=== PATIENT | female | born 1995 | race Caucasian/White ===

== ENCOUNTER 2023-02-04 07:39 | Outpatient (CLI) | payer OTHER, SELFPAY | END 2023-02-04 07:40 | disposition home or self-care (01) | LOC: NFLDREF 07:45 | PROVIDERS: Visit Provider Family Medicine | DX: Z13.220 Encounter for screening for lipoid disorders (principal); Z13.1 Encounter for screening for diabetes mellitus | CPT/HCPCS: 80061; 82947 ==

== ENCOUNTER 2023-04-03 16:32 | Emergency (ER) | payer OTHER, SELFPAY ==
[2023-04-03 16:37] VITALS: BP 110/72; PULSE 76; RESP 18; TEMP 36.6; O2SAT 100; BMI 24.2
--- NOTE | 2023-04-03 16:45 | ED_ITS ---
HPI - General Adult General Time Seen by Provider: 16:45 Date Seen: 04/03/23 Chief complaint: Vaginal Bleeding Stated complaint: 6 weeks , abdomen pain Time Seen by Provider: 04/03/23 16:40 Source: patient, family, RN notes reviewed and old records reviewed History of Present Illness HPI narrative: 27-year-old with at 6+ to weeks by LMP 02/18/2023 who presents today with abdominal pain and vaginal bleeding. Patient notes light brown spotting all week, today bright red blood with some clots and also some left lower quadrant abdominal pain radiating to the low back. Denies chest pain or shortness of breath. Says the amount of bleeding is less than period. Has not had 1st OB visit or imaging thus far in Related Data Home Medications Medication Instructions Recorded Confirmed No Known Home Medications 04/03/23 04/03/23 Allergies Allergy/AdvReac Type Severity Reaction Status Date / Time No Known Drug Allergies Allergy Verified 02/04/23 07:31 [facility] Medical History No pertinent past medical history ?Z78.9 - Other specified health status (ICD-10) Surgical History History of wisdom tooth extraction (2016) ?K08.409 - Partial loss of teeth, unspecified cause, unspecified class (ICD- 10) Family History Leukemia Maternal Grandfather, Onset Age: 55 Stroke Paternal Grandmother, Onset Age: 78 Social History Narrative: , 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[employer], no kids, Labrador puppy Mushu Exercise walking 45 minutes 3 to 4 times a week Lifetime nonsmoker Rare alcohol use No drug use Smoking Status: Never smoker How often do you have a drink containing alcohol: never AUDIT-C Alcohol total score: 0 Non-prescribed substance use: denies use Little interest or pleasure in doing things: not at all Feeling down, depressed, or hopeless: not at all Exam Narrative: Exam Narrative: General: Well-developed and well-nourished, no acute distress Head: Atraumatic and normocephalic Eyes: Pupils are equal reactive, extraocular motions intact, conjunctiva clear ENT: External nose and ears are normal, posterior pharynx without erythema or exudate Neck: No midline cervical tenderness, full spontaneous range of motion the neck, trachea midline, no adenopathy Heart: Regular rate and rhythm no murmurs or thrills Lungs: Clear to auscultation bilaterally without wheezes or crackles Abdomen: Soft, left lower quadrant tenderness just lateral to midline, nondistended with active bowel sounds Musculoskeletal: No tenderness, deformity, or edema Neurologic: Awake, alert, and oriented x3, no gross focal neurologic deficits, cranial nerves intact as tested Psych: Mood and affect are appropriate Skin: No rashes Const: Vital Signs, click to edit/add: Vital Signs - 24 hr 04/03/23 16:37 Temperature 97.8 F Pulse Rate [Right Femoral] 76 Respiratory Rate 18 Blood Pressure [Ri ght Upper Arm] 110/72 Pulse Oximetry 100 Oxygen Delivery Me thod Room Air Course Course ED Course: Patient seen examined, reviewed prior primary care visit from 02/04/2023 which was a routine physical exam with no specific concerns and no medications prescribed, patient denies smoking. Patient presents today with left lower quadrant pain and vaginal bleeding. Vital is stable on exam, says bleeding is less than.. Labs ordered along pelvic ultrasound, concern for miscarriage or ectopic . Reevaluation(s) Time of Reevaluation #1: 17:29 Reevaluation #1: Discussed ultrasound with tech, intrauterine 7 weeks, also 2 large cysts on the left ovary good flow. Time of Reevaluation #2: 19:02 Reevaluation #2: Reviewed ultrasound report which demonstrates gestational sac with 9.5 mm and round pole but no embryonic cardiac activity, two left ovarian cysts. Concern for early failure. Discussed findings with patient and spouse. [facility] 2-3 days for repeat beta hCG and in 1 week for repeat ultrasound. Vital Signs Vital signs: Initial Vital Signs Temperature 97.8 F 04/03/23 16:37 Temperature Source Temporal Artery Scan 04/03/23 16:37 Pulse Rate 76 04/03/23 16:37 Respiratory Rate 18 04/03/23 16:37 Blood Pressure 110/72 04/03/23 16:37 Blood Pressure Mean 84 04/03/23 16:37 Blood Pressure Position Sitting 04/03/23 16:37 Pulse Oximetry 100 04/03/23 16:37 Oxygen Delivery Method Room Air 04/03/23 16:37 Vital Signs Temperature 97.8 F 04/03/23 16:37 Pulse Rate 76 04/03/23 16:37 Respiratory Rate 18 04/03/23 16:37 Blood Pressure 110/72 04/03/23 16:37 Pulse Oximetry 100 04/03/23 16:37 Oxygen Delivery Method Room Air 04/03/23 16:37 Temperature 97.8 F 04/03/23 16:37 Pulse Rate 76 04/03/23 16:37 Respiratory Rate 18 04/03/23 16:37 Blood Pressure 110/72 04/03/23 16:37 Pulse Oximetry 100 04/03/23 16:37 Oxygen Delivery Method Room Air 04/03/23 16:37 Medical Decision Making Lab Data Labs: Lab Results 04/03/23 04/03/23 Range/Units 17:05 17:39 WBC 7.61 (4.50-11.00) K/uL RBC 4.42 (4.00-5.20) m/uL Hgb 14.1 (12.0-16.0) gm/dL Hct 41.5 (33.0-51.0) % MCV 94 (80-100) fL MCH 32 (26-34) pg MCHC 34 (32-36) gm/dL RDW Coeff of Nabil 12.2 (11.5-15.5) % Plt Count 302 (140-440) K/uL Neut % (Auto) 61.1 (42.0-72.0) % Lymph % (Auto) 31.5 (20-44) % [place] % (Auto) 4.6 (0.0-11.0) % Eos % (Auto) 2.0 (0.0-7.0) % Baso % (Auto) 0.7 (0.0-3.0) % Neut # (Auto) 4.65 (1.7-7.0) K/uL Lymph # (Auto) 2.40 (0.90-2.90) K/uL [place] # (Auto) 0.40 (0.00-0.90) K/UL Eos # (Auto) 0.15 (0.00-0.50) K/uL Baso # (Auto) 0.05 (0.00-0.30) K/uL Abs Immat Gran (auto) 0.01 (0.00-0.30) K/uL Imm/Tot Granulo (auto) 0.1 % HCG, Quant 5842.00 mIU/mL Lab Acknowledgement Test Added Blood Type A Positive Antibody Screen NEGATIVE Discharge Plan Discharge Clinical Impression: Ovarian cyst affecting in first trimester, antepartum, Threatened miscarriage in early Patient Disposition: Home, Self-Care Condition: Stable Instructions: Threatened Miscarriage (ED), Ovarian Cyst (ED) Additional Instructions: Tylenol as needed for pain [facility] in 2-3 days for repeat blood tests and next week for repeat ultrasound Activity Level: No Restrictions Discharge Diet: Regular Prescriptions: No Action No Known Home Medications Follow Up/Referrals: Shelly Lugo MD [Primary Care Provider] - Stand Alone Forms: [employer] Info Instructions
--- NOTE | 2023-04-03 16:54 | CRLHL7_ITS ---
For Patients: As a result of the Cures Act, medical imaging exams and procedure reports are released immediately into your electronic medical record. You may view this report before your referring provider. If you have questions, please contact your health care provider. INDICATION: BLEEDING, LLQ PAIN OBSTETRICAL ULTRASOUND Technique: Transvaginal scanning of the pelvis was performed. Findings: The uterus contains a gestational sac which shows a mean sac diameter of 1.3 centimeters. The gestational sac contains an embryonic pole which has a crown-rump length of 9.5 millimeters. No embryonic cardiac activity can be seen. The left ovary contains 2 simple cysts which measure 3.6 x 1.6 x 2.8 centimeters and 3.2 x 1.1 x 2.3 centimeters. The right ovary is unremarkable. Doppler blood flow is present within both of the ovaries. No significant free pelvic fluid is identified. IMPRESSION: 1. Early intrauterine with embryonic crown-rump length of 9.5 millimeters but no detectable cardiac activity, consistent with failure. 2. Left ovarian simple cysts measuring 3.6 x 1.6 x 2.8 centimeters and 3.2 x 1.1 x 2.3 centimeters. MINISTERIO DA SILVA MD [employer] Dictated by Gaudencio Da Silva MD @ 04/03/2023 6:51:25 PM Dictated by: Gaudencio Da Silva MD @ 04/03/2023 18:53:15 (Electronically Signed)
[2023-04-03 17:17] LABS: Basophils Absolute Auto 0.05 K/uL (0.00-0.30); Basophils Percent Auto 0.7 % (0.0-3.0); Eosinophils Absolute Auto 0.15 K/uL (0.00-0.50); Hematocrit 41.5 % (33.0-51.0); Hemoglobin* 14.1 gm/dL (12.0-16.0); Immature Granulocytes Abs Auto 0.01 K/uL (0.00-0.30); Immature Granulocytes Pct Auto 0.1 %; Lymphocytes Percent Auto 31.5 % (20-44); Mean Corpuscular HGB Conc 34 gm/dL (32-36); Mean Corpuscular Hemoglobin 32 pg (26-34); Mean Corpuscular Volume 94 fL (80-100); Monocytes Percent Auto 4.6 % (0.0-11.0); Neutrophils Absolute Auto 4.65 K/uL (1.7-7.0); Neutrophils Percent Auto 61.1 % (42.0-72.0); Platelet Count* 302 K/uL (140-440); RDW Coefficient of Variation % 12.2 % (11.5-15.5); Red Blood Count 4.42 m/uL (4.00-5.20); White Blood Count* 7.61 K/uL (4.50-11.00)
--- OUTSIDE RECORDS SUMMARY | 2023-04-03 17:31 | XMS_ITS | Clinical Summary ---
Author Name Unknown Organization [facility] Address [place], [place] [address] Care Team Providers Care Printing Table Worker Name Role Phone Molly Celeste Primary Care Provider +1- [phone] Allergies No known active allergies Medications Medication Sig Dispensed Refills Start Date End Date Status norgestimate-ethinyl estradioL (Tri-Sprintec) 0.18/0.215/0.25 mg-35 mcg (28) tabletIndications:Oral contraceptive use Take 1 Tablet by mouth once daily. 84 Tablet 0 10/27/2022 Active Active Problems Problem Noted Date Diagnosed Date Encounter for surveillance of contraceptive pill s 07/17/2015 Encounters Date Type Department Care Team Description 02/04/2023 Lab Requisition [facility] [phone] Shelly Lugo MD from Last 3 Months Immunizations Name Administration Dates Next Due DTP 1995,1995,1995 DTaP 05/21/1999,08/30/1996 HIB PRP-OMP (PedvaxHIB) 08/30/1996,1995,,1995 Hepatitis A (Adult) 01/22/2022 Hepatitis B (Adult) 12/06/2015,07/03/2015 Hepatitis B (Peds) 03/04/1996,1995, 996 Inactivated Polio Vaccine 05/21/1999 Influenza Virus, Unspecified 12/11/2021 Influenza, IIV3 (Age >=3 years) 12/04/2017 Influenza, IIV4 12/17/2020,12/22/2019,11/28/2016 ,12/06/2015 MMR 05/21/1999,08/30/1996 Meningococcal Vaccine (Menveo) 09/15/2012 Oral Polio Vaccine 1995,1995, 996 Tdap 10/06/2016,08/06/2006 Tuberculin (PPD) 10/06/2016,05/12/1996 Varicella Vaccine 09/26/2009,05/21/1999 Family History Medical History Relation Name Comments Hypertension Father Cancer Maternal Grandfather AML Heart Disease Maternal Grandmother Afib Good Health Mother Hypertension Paternal Grandfather Stroke Paternal Grandmother Relation Name Status Comments Father Maternal Grandfather Maternal Grandmother Mother Paternal Grandfather Paternal Grandmother Social History Tobacco Use Types Packs/Day Years Used Date Smoking Tobacco: Never Smokeless Tobacco: Never Alcohol Use Standard Drinks/Week Comments Yes 0 (1 standard drink = 0.6 oz pure alcohol) once every few few months/ rare. PHQ-2 Answer Date Recorded PHQ-2 TOTAL SCORE 0 01/22/2022 Social Connections Answer Date Recorded Frequency of Communication with Friends and Fami ly Not on file 03/02/2021 Financial Resource Strain Answer Date R ecorded Difficulty of Paying Living Expenses Not on file 03/02/2021 Difficulty of Paying Living Expenses Not on file 03/02/2021 Sex and Gender Information Value Date Recorded Sex Assigned at Not on file Gender Identity Not on file Sexual Orientation Not on file Obstetrics History Last Filed Vital Signs Vital Sign Reading Time Taken Comments Blood Pressure 102/78 01/22/2022 9:34 AM KEY ACCOUNT COORDINATOR Pulse 72 01/22/2022 9:34 AM KEY ACCOUNT COORDINATOR Temperature 37.1 ??C (98.7 ??F) 08/30/2013 9:17 AM CD T Respiratory Rate 16 12/10/2018 8:35 AM CDT Oxygen Saturation - - Inhaled Oxygen Concentration - - Weight 68 kg (150 lb) 01/22/2022 9:34 AM KEY ACCOUNT COORDINATOR Height 170.2 cm (5' 7) 01/22/2022 9:34 AM KEY ACCOUNT COORDINATOR Body Mass Index 23.49 01/22/2022 9:34 AM KEY ACCOUNT COORDINATOR Plan of Treatment Health Maintenance Due Date Last Done Comments HIV for age 15-65 05/19/2010 Hepatitis C screening for age 18-79 05/19/2013 COVID-19 vaccine series ( season) 2022 02/13/2021, 07/06/2020, 06/15/2020 Influenza for age 9-49 10/31/2022 2, 12/17/2020, 12/22/2019, Additional history exists BMI (ht and wt on same day) for age 18+ 01/22/2023 01/22/2022, 12/17/2020, 12/15/2019, Additional history exists Depression screening for age 12+ 01/22/2023 01/22/2022, 12/17/2020, 12/15/2019, Additional history exists Pap test for age 21-65 02/04/2026 3, 12/15/2019, 11/28/2016 Tetanus booster 10/06/2026 10/06/2016, 08/06/2006 Tdap Completed 10/06/2016, 08/06/2006 Pneumococcal series for age 6-64 Aged Out No longer eligible based on patient's age to complete this topic Procedures Procedure Name Priority Date/Time Associated Diagnosis Comments LAB TRACKING EVENT Routine 02/04/2023 7: 55 AM KEY ACCOUNT COORDINATOR WELDER OXYHYDROGEN THIN PREP PAP SCREEN IMAGED Routine 02/04/2023 7:55 AM KEY ACCOUNT COORDINATOR from Last 3 Months Results * LAB TRACKING EVENT (02/04/2023 7:55 AM KEY ACCOUNT COORDINATOR) Other (Other) Client Collect / Unknown 02/04/2023 7:55 AM KEY ACCOUNT COORDINATOR 02/04/2023 9:08 PM KEY ACCOUNT COORDINATOR Shelly Lugo MD [facility] [address] [place] [address], * WELDER OXYHYDROGEN THIN PREP PAP SCREEN IMAGED (02/04/2023 7:55 AM KEY ACCOUNT COORDINATOR) Case Report Gynecologic Cytology Report ? Case: [id number] ? Authorizing Provider: ??Shelly Lugo MD ??Collected: ? 02/04/2023 0755 ? Ordering Location: ? [facility] ?Received: ?02/05/2023 1241 ? First Screen: ?Evelyn Estrella ? Specimen: ?WELDER OXYHYDROGEN ThinPrep Vial Screening, Cervical/Vaginal ? 02/12/2023 4:46 PM KEY ACCOUNT COORDINATOR [facility]- ENTRAL LABORATORY INTERPRETATION/ RESULT NEGATIVE FOR INTRAEPITHELIAL LESION OR MALIGNANCY (NIL) (none) 02/12/2023 4:46 PM KEY ACCOUNT COORDINATOR [facility] ENTRAL LABORATORY IMEN ADEQUACY Satisfactory for evaluation Endocervical component present 02/12/2023 4:46 PM KEY ACCOUNT COORDINATOR [facility]-C ENTRAL LABORATORY HPV REQUEST HPV not requested 2022 4:46 PM KEY ACCOUNT COORDINATOR [facility] ENTRAL LABORATORY Date of LMP 02/12/2023 4:46 PM KEY ACCOUNT COORDINATOR [facility] ENTRAL LABORATORY Comment:unknown Last Pap Date 02/12/2023 4:46 PM KEY ACCOUNT COORDINATOR [facility] ENTRAL LABORATORY Comment:unknown Last Pap Result NIL 4:46 PM KEY ACCOUNT COORDINATOR [facility]- ENTRAL LABORATORY Abnormal Pap or [place] Bx in last 5 years No 02/12/2023 4:46 PM KEY ACCOUNT COORDINATOR [facility] [place] Bx Done Today No 02/12/2023 4:46 PM KEY ACCOUNT COORDINATOR [facility] Additional Information 02/12/2023 4:46 PM KEY ACCOUNT COORDINATOR [facility] ENTRWA LABORATORY Comment: Interpreted at [facility] - [address], [place] [address] Automated Review Successful 02/12/2023 4:46 PM KEY ACCOUNT COORDINATOR [facility] Comment:Specimen processed s uccessfully by automated paintless dent repair technician device, ThinPrep Imaging System, [employer] Note The pap test is a screening technique, not a diagnostic procedure. It is used primarily to screen for squamous cancers and precursor lesions. Published studies have shown that it is subject to both false negative and false positive results. The pap test should not be used as the sole means to diagnose or exclude pre-malignant and malignant lesions. 02/12/2023 4:46 PM KEY ACCOUNT COORDINATOR [facility] Other (Cervical/Vagina l) 02/04/2023 7:55 AM KEY ACCOUNT COORDINATOR 02/05/2023 12:41 PM KEY ACCOUNT COORDINATOR Shelly Lugo MD PATHOLOGY/CYTOLO GY [facility] [address] [place] [address], [place] from Last 3 Months Care Teams Printing Table Worker Relationship Specialty Start Date End Date Molly Celeste PA PCP - General Physician New Car Inspector 05/04/21
[2023-04-03 17:33] LABS: Slide Review Reflex No
== END 2023-04-03 19:15 | disposition home or self-care (01) ==
PROVIDERS: Emergency Provider Family Medicine; PCP Family Medicine
DX: O34.81 Maternal care for other abnormalities of pelvic organs, first trimester (principal); O20.0 Threatened abortion; N83.202 Unspecified ovarian cyst, left side; Z3A.01 Less than 8 weeks gestation of pregnancy
CPT/HCPCS: 36415; 76817; 84702; 85025; 86850; 86900; 86901; 93976; 99284

== ENCOUNTER 2023-04-06 16:20 | Outpatient (CLI) | payer OTHER, SELFPAY ==
--- OUTSIDE RECORDS SUMMARY | 2023-04-08 11:35 | XMS_ITS | Clinical Summary ---
Author Name Unknown Organization [facility] Address [place], [place] [address] Care Team Providers Care Box Toe Cementer Name Role Phone Molly Celeste Primary Care Provider +1- [phone] Allergies No known active allergies Medications Medication Sig Dispensed Refills Start Date End Date Status norgestimate-ethinyl estradioL (Tri-Sprintec) 0.18/0.215/0.25 mg-35 mcg (28) tabletIndications:Oral contraceptive use Take 1 Tablet by mouth once daily. 84 Tablet 0 10/27/2022 Active Active Problems Problem Noted Date Diagnosed Date Encounter for surveillance of contraceptive pill s 07/17/2015 Encounters Date Type Department Care Team Description 02/04/2023 Lab Requisition [facility] [phone] Shelly Lugo MD from Last 3 Months [...] Comments Blood Pressure 102/78 01/22/2022 9:34 AM WAVE SOLDERING MACHINE OPERATOR Pulse 72 01/22/2022 9:34 AM WAVE SOLDERING MACHINE OPERATOR Temperature 37.1 ??C (98.7 ??F) 08/30/2013 9:17 AM CD T Respiratory Rate 16 12/10/2018 8:35 AM CDT Oxygen Saturation - - Inhaled Oxygen Concentration - - Weight 68 kg (150 lb) 01/22/2022 9:34 AM WAVE SOLDERING MACHINE OPERATOR Height 170.2 cm (5' 7) 01/22/2022 9:34 AM WAVE SOLDERING MACHINE OPERATOR Body Mass Index 23.49 01/22/2022 9:34 AM WAVE SOLDERING MACHINE OPERATOR Plan of Treatment Health Maintenance Due Date [...] TRACKING EVENT Routine 02/04/2023 7: 55 AM WAVE SOLDERING MACHINE OPERATOR CARBIDE POWDER PROCESSOR THIN PREP PAP SCREEN IMAGED Routine 02/04/2023 7:55 AM WAVE SOLDERING MACHINE OPERATOR from Last 3 Months Results * LAB TRACKING EVENT (02/04/2023 7:55 AM WAVE SOLDERING MACHINE OPERATOR) Other (Other) Client Collect / Unknown 02/04/2023 7:55 AM WAVE SOLDERING MACHINE OPERATOR 02/04/2023 9:08 PM WAVE SOLDERING MACHINE OPERATOR Shelly Lugo MD LAB BILL ONLY [facility] [address] [place] [address], * CARBIDE POWDER PROCESSOR THIN PREP PAP SCREEN IMAGED (02/04/2023 7:55 AM WAVE SOLDERING MACHINE OPERATOR) Case Report Gynecologic Cytology Report ? Case: [id number] ? Authorizing Provider: ??Shelly Lugo MD ??Collected: ? 02/04/2023 0755 ? Ordering Location: ? [facility] ?Received: ?02/05/2023 1241 ? First Screen: ?Evelyn Estrella ? Specimen: ?CARBIDE POWDER PROCESSOR ThinPrep Vial Screening, Cervical/Vaginal ? 02/12/2023 4:46 PM WAVE SOLDERING MACHINE OPERATOR [facility] [employer]- ENTRAL LABORATORY INTERPRETATION/ RESULT NEGATIVE FOR INTRAEPITHELIAL LESION OR MALIGNANCY (NIL) (none) 02/12/2023 4:46 PM WAVE SOLDERING MACHINE OPERATOR [facility] [employer] [facility] ENTRAL LABORATORY IMEN ADEQUACY Satisfactory for evaluation Endocervical component present 02/12/2023 4:46 PM WAVE SOLDERING MACHINE OPERATOR [facility] LAB[facility]-C ENTRAL LABORATORY HPV REQUEST HPV not requested 2022 4:46 PM WAVE SOLDERING MACHINE OPERATOR [facility] LAB[facility]-C ENTRAL LABORATORY Date of LMP 02/12/2023 4:46 PM WAVE SOLDERING MACHINE OPERATOR [facility] [employer] [facility] ENTRAL LABORATORY Comment:unknown Last Pap Date 02/12/2023 4:46 PM WAVE SOLDERING MACHINE OPERATOR [facility] [employer] [facility]-C ENTRAL LABORATORY Comment:unknown Last Pap Result NIL 4:46 PM WAVE SOLDERING MACHINE OPERATOR [facility] [employer] [facility]- ENTRAL LABORATORY Abnormal Pap or [place] Bx in last 5 years No 02/12/2023 4:46 PM WAVE SOLDERING MACHINE OPERATOR [facility] [place] Bx Done Today No 02/12/2023 4:46 PM WAVE SOLDERING MACHINE OPERATOR [facility] Additional Information 02/12/2023 4:46 PM WAVE SOLDERING MACHINE OPERATOR [facility] ENTRCT LABORATORY Comment: Interpreted at [facility] [place] [facility] - [address], [place] [address] Automated Review Successful 02/12/2023 4:46 PM WAVE SOLDERING MACHINE OPERATOR [facility] Comment:Specimen processed s uccessfully by automated residential electrician device, ThinPrep Imaging System, [employer] Note The pap test is a screening technique, not a diagnostic procedure. It is used primarily to screen for squamous cancers and precursor lesions. Published studies have shown that it is subject to both false negative and false positive results. The pap test should not be used as the sole means to diagnose or exclude pre-malignant and malignant lesions. 02/12/2023 4:46 PM WAVE SOLDERING MACHINE OPERATOR [facility] Other (Cervical/Vagina l) 02/04/2023 7:55 AM WAVE SOLDERING MACHINE OPERATOR 02/05/2023 12:41 PM WAVE SOLDERING MACHINE OPERATOR Shelly Lugo MD PATHOLOGY/CYTOLO [facility]Y [facility] [address] [place] [address], [place] from Last 3 Months Care Teams Box Toe Cementer Relationship Specialty Start Date End Date Molly Celeste PA PCP - General Physician Medical Records Clerk 05/04/21
== END 2023-04-06 16:21 | disposition home or self-care (01) ==
LOC: NFLDREF 04-08 11:31
PROVIDERS: PCP Family Medicine; Referring Provider Family Medicine; Visit Provider Obstetrics & Gynecology
DX: O20.8 Other hemorrhage in early pregnancy (principal); Z3A.01 Less than 8 weeks gestation of pregnancy; Z67.10 Type A blood, Rh positive
CPT/HCPCS: 84702; 86850; 86900; 86901

== ENCOUNTER 2023-06-30 16:48 | Outpatient (CLI) | payer OTHER, SELFPAY ==
--- OUTSIDE RECORDS SUMMARY | 2023-06-30 16:49 | XMS_ITS | Clinical Summary ---
Author Name Unknown Organization [employer] [facility] Address [place], [place] [address] Care Team Providers Care Automatic Mold Sander Name Role Phone Molly Celeste Primary Care Provider [phone]- [phone] Allergies No known active allergies Medications Medication Sig Dispensed Refills Start Date End Date Status norgestimate-ethinyl estradioL (Tri-Sprintec) 0.18/0.215/0.25 mg-35 mcg (28) tabletIndications:Oral contraceptive use Take 1 Tablet by mouth once daily. 84 Tablet 10/27/2022 Active Active Problems Problem Noted Date Diagnosed Date Encounter for surveillance of contraceptive pill s 07/17/2015 Immunizations Name Administration Dates Next Due DTP [...] Comments Blood Pressure 102/78 01/22/2022 9:34 AM BUILDING MAINTENANCE SUPERVISOR Pulse 72 01/22/2022 9:34 AM BUILDING MAINTENANCE SUPERVISOR Temperature 37.1 ??C (98.7 ??F) 08/30/2013 9:17 AM CD T Respiratory Rate 16 12/10/2018 8:35 AM CDT Oxygen Saturation - - Inhaled Oxygen Concentration - - Weight 68 kg (150 lb) 01/22/2022 9:34 AM BUILDING MAINTENANCE SUPERVISOR Height 170.2 cm (5' 7) 01/22/2022 9:34 AM BUILDING MAINTENANCE SUPERVISOR Body Mass Index 23.49 01/22/2022 9:34 AM BUILDING MAINTENANCE SUPERVISOR Plan of Treatment Health Maintenance Due Date Last Done Comments HIV for age 15-65 05/19/2010 Hepatitis C screening for age 18-79 05/19/2013 COVID-19 vaccine series (2022- season) 2022 02/13/2021, 07/06/2020, 06/15/2020 BMI (ht and wt on same day) for age 18+ 01/22/2023 01/22/2022, 12/17/2020, 12/15/2019, Additional history exists Depression screening for age 12+ 01/22/2023 01/22/2022, 12/17/2020, 12/15/2019, Additional history exists Influenza for age 9-49 11/01/2023 2, 12/17/2020, 12/22/2019, Additional history exists Pap test for age 21-65 02/04/2026 3, 12/15/2019, 11/28/2016 Tetanus booster 10/06/2026 10/06/2016, 08/06/2006 Tdap Completed 10/06/2016, 08/06/2006 Pneumococcal series for age 6-64 Aged Out No longer eligible based on patient's age to complete this topic Procedures Procedure Name Priority Date/Time Associated Diagnosis Comments FLIGHT TECHNICIAN THIN PREP PAP SCREEN IMAGED Routine 02/04/2023 7:55 AM BUILDING MAINTENANCE SUPERVISOR from Last 3 Months or Most Recently Relevant to Health Maintenance Results * FLIGHT TECHNICIAN THIN PREP PAP SCREEN IMAGED (02/04/2023 7:55 AM BUILDING MAINTENANCE SUPERVISOR) Case Report Gynecologic Cytology Report ? Case: [id number] ? Authorizing Provider: ??Shelly Lugo MD ??Collected: ? 02/04/2023 0755 ? Ordering Location: ? [facility] ?Received: ?02/05/2023 1241 ? First Screen: ?Evelyn Estrella ? Specimen: ?FLIGHT TECHNICIAN ThinPrep Vial Screening, Cervical/Vaginal ? 02/12/2023 4:46 PM BUILDING MAINTENANCE SUPERVISOR [facility] [employer] [facility]- ENTRAL LABORATORY INTERPRETATION/ RESULT NEGATIVE FOR INTRAEPITHELIAL LESION OR MALIGNANCY (NIL) (none) 02/12/2023 4:46 PM [facility] ENTRSD LABORATORY IMEN ADEQUACY Satisfactory for evaluation Endocervical component present 02/12/2023 4:46 PM [facility] ENTRAL LABORATORY HPV REQUEST HPV not requested 2022 4:46 PM [facility] ENTR[facility] LABORATORY Date of LMP 02/12/2023 4:46 PM [facility] ENTR[facility] LABORATORY Comment:unknown Last Pap Date 02/12/2023 4:46 PM BUILDING MAINTENANCE SUPERVISOR [facility] ENTRAL LABORATORY Comment:unknown Last Pap Result NIL 4:46 PM BUILDING MAINTENANCE SUPERVISOR [facility] ENTRAL LABORATORY Abnormal Pap or Otley Bx in last 5 years No 02/12/2023 4:46 PM [facility] ENTRAL LABORATORY Otley Bx Done Today No 02/12/2023 4:46 PM BUILDING MAINTENANCE SUPERVISOR [facility] ENTRAL LABORATORY Additional Information 02/12/2023 4:46 PM [facility] ENTRAL LABORATORY Comment: Interpreted at [facility], Central Laboratory - [address], [place] [address] Automated Review Successful 02/12/2023 4:46 PM [facility] ENTR[facility] LABORATORY Comment:Specimen processed s uccessfully by automated cae engineer device, ThinPrep Imaging System, [employer] Note The pap test is a screening technique, not a diagnostic procedure. It is used primarily to screen for squamous cancers and precursor lesions. Published studies have shown that it is subject to both false negative and false positive results. The pap test should not be used as the sole means to diagnose or exclude pre-malignant and malignant lesions. 02/12/2023 4:46 PM BUILDING MAINTENANCE SUPERVISOR [facility] [employer] LABORATORY-C ENTRAL LABORATORY Other (Cervical/Vagina l) 02/04/2023 7:55 AM BUILDING MAINTENANCE SUPERVISOR 02/05/2023 12:41 PM BUILDING MAINTENANCE SUPERVISOR Shelly Lugo MD PATHOLOGY/[facility]CENTRAL LABORATORY [address] [place] [address], from Last 3 Months or Most Recently Relevant to Health Maintenance Care Teams Automatic Mold Sander Relationship Specialty Start Date End Date Molly Celeste PA PCP - General Physician Scientific Research Associate 05/04/21
--- NOTE | 2023-06-30 17:00 | US_ITS ---
Patient: GABRIELLA PARRISH Facility:?[facility] Patient ID:?[id number] Site Patient ID:?[id number]. Site :?1995 Study:?US-OB Pelvis OB TV-06/30/2023 5:47:16 PM Ordering Physician:?JOSE ROBLEDO CNM Final Report: INDICATION: First trimester dating and viability. TECHNIQUE: Ultrasound OB pelvis transvaginal. Real-time mclain-scale imaging of the pelvis was performed. COMPARISON: None. FINDINGS: Intrauterine gestation: Single. A nuchal translucency is evident. No other focal abnormality at this early stage of development. Melrose-rump length: 2.5 cm. AUA: 9 weeks 1 day. MADAI (AUA): February 01, 2024. GA (LMP): Unknown. Normal yolk Sac: Yes. Perigestational hemorrhage: No. Ovaries and adnexa: Unremarkable. Adnexal fluid collections: No. IMPRESSION: Single viable intrauterine . Estimated ultrasound age is 9 weeks 1 day. There was a nuchal translucency. However, this is nonspecific at this early stage of development. Otherwise, no abnormality evident. Dictated by Jermaine Walker MD @ 06/30/2023 6:17:59 PM Signed by:?Jermaine Walker MD @06/30/2023 6:17:59 PM (Electronic Signature)
== END 2023-06-30 16:49 | disposition home or self-care (01) ==
LOC: US 16:48
PROVIDERS: PCP Family Medicine; Visit Provider Advanced Practice Midwife
DX: Z34.91 Encounter for supervision of normal pregnancy, unspecified, first trimester (principal); Z3A.09 9 weeks gestation of pregnancy
CPT/HCPCS: 76817

== ENCOUNTER 2023-11-10 13:30 | Outpatient (CLI) | payer OTHER, SELFPAY ==
--- OUTSIDE RECORDS SUMMARY | 2023-11-14 17:10 | XMS_ITS ---
Author Organization [facility] [place] [facility] Address [address] [place] [address] Care Team Providers Care Fireworks Inspector Name Role Phone Unavailable Unavailable Unavailable Surgery Details Not on file Complications Check Surgery Details section. Procedure Estimated Blood Loss Check Surgery Details section. Procedure Findings Check Surgery Details section. Procedure Specimens Taken Check Surgery Details section.
--- OUTSIDE RECORDS SUMMARY | 2023-11-14 17:10 | XMS_ITS | Encounter Summary ---
Author Organization [facility] Address [address] [place] [address] Care Team Providers Care Habilitation Specialist Name Role Phone Unavailable Primary Care Provider Unavailabl e Encounter Details Date Type Department Care Team (Latest Contact Info) Description 09/11/2023 9:32 AM CDT - 09/11/2023 11:59 PM CDT Hospital Encounter Department of Obstetrics and Gynecology in [place], [place] [address] [place] [address] Marlo Zuniga M.B.B.S. [address] [place] [address] Ultrasound Finding Suggesting Abnormality Discharge Disposition: Home or Self Care Social History Tobacco Use Types Packs/Day Years Used Date Smoking Tobacco: Never Smokeless Tobacco: Never Alcohol Use Standard Drinks/Week Comments Not Currently 0 (1 standard drink = 0.6 oz pur e alcohol) rare [facility] Utilities Answer Date Recorded In the past 12 months has [facility] [place], gas, oil, or water [email or web address] threatened to shut off services in your home? No 07/12/2023 Exercise Vital Sign Answer Date Recorde d On average, how many days pe r week do you engage in moderate to strenuous exercise (like a brisk walk)? 5 days 07/12/2023 On average, how many minutes do you engage in exercise at this level? 40 min 07/12/2023 Hunger Vital Sign Answer Date Recorded Within the past 12 months, y ou worried that your food would run out before you got the money to buy more. Never true 07/12/19 24 Within the past 12 months, t he food you bought just didn't last and you didn't have money to get more. Never true 07/12/2023 PRAPARE - Transportation Answer Date Re corded In the past 12 months, has l ack of transportation kept you from medical appointments or from getting medications? No 06/30 In the past 12 months, has l ack of transportation kept you from meetings, work, or from getting things needed for daily living? No 07/12/2023 Nutrition Answer Date Recorded On average, how many serving s of fruits and vegetables do you eat per day (serving size is equal to 1 cup or approximately the size of a tennis ball)? 3-5 07/12/2023 Dental Answer Date Recorded Dental: Regular Dentist Yes 07/12/19 Employment Answer Date Recorded Employment status Employed and actively working without restrictions 07/12/2023 Housing Stability Answer Date Recorded What is your living situation today? I have a [facility] place to live 07/12/2023 Education Answer Date Recorded What is the highest level of school you have completed or the highest degree you have received? Associate degree: academic program 07/03/2023 Estimated Date of Delivery Comme nts Yes 02/01/2024 Based on Ultraso und Sex and Gender Information Value Date Recorded Sex Assigned at Female 07/12/2023 3:43 PM CDT Gender Identity Female 07/12/2023 3:43 PM CDT Sexual Orientation Straight 07/12/2023 3: 43 PM CDT documented as of this encounter Medications at Time of Discharge Medication Sig Dispensed Refills Start Date End Date no115/iron/folic acid ( 19 ORAL) Take 1 tablet by mouth daily. 04/08/2023 documented as of this encounter Plan of Treatment Not on file documented as of this encounter Procedures Procedure Name Priority Date/Time Associated Diagnosis Comments US OB ADVANCED LEVEL FALLON RAD - Routine (most inpatients and all outpatients) 09/11/2023 11:27 AM CDT Ultrasound Finding Suggesting Abnormality documented in this encounter Results * US OB Advanced Level Fallon (09/11/2023 11:27 AM CDT) Anatomical Region Laterality Modality Body, Ultrasound OB RST LOS, Ultrasound ARZ LOS N/A Ultrasound Narrative 09/11/2023 12:31 PM CDT JULIETA GOODMAN OB Exam, 09/11/2023 EXAM INFORMATION Patient Name: ??JULIETA GOODMAN : ??1995 Age: ??28 yrs Sex: ??Female Ref Phys: ??MARLO ARAB Exam Date: 09/11/2023 Procedure: OB ADVANCED LEVEL FALLON Exam Site: [facility] OB #6 Plurality: 1 OBHx: [G:(2)] ?F Trm:() Pre:() C-Sec:() Ab-I:() Ab-S:() Ect:() Multi:() Elizabeth:(0) INDICATIONS FOR SONOGRAPHY History thickened nuchal translucency IMPRESSION Detailed Anatomy Survey Fetus: Live fallon intrauterine . Presentation: Cephalic. Anatomy: No structural abnormalities identified with detailed anatomy survey. Growth: Appropriate for gestational age (1 day discrepancy). Amniotic fluid volume: Normal. Placenta: Posterior, with no evidence of placenta previa or vasa previa. Uterus: No uterine abnormalities are identified. Ovaries / Adnexa: Both ovaries appear normal. No adnexal abnormalities are identified. Cervix: Appears long on transabdominal imaging. Conclusion: Live fallon intrauterine in cephalic presentation. No structural abnormalities identified with detailed anatomy survey. Appropriate growth and normal amniotic fluid volume. Posterior placenta, with no placenta previa or vasa previa. MATERNAL MEASUREMENTS Cervix Length: ??41.4 mm MEASUREMENTS ??eric ??wks [+/-] (Range) % ?? BPD: 4.68 cm ?? 20w1d ??[+/-1.73] ??(3.89 - 5.07) 74% FL: ??3.13 cm ?? 19w5d ??[+/-1.80] ??(2.56 - 3.73) 48% HC: ??17.6 cm ?? 20w1d ??[+/-1.48] ??(15.18 - 19.10) 68% AC: ??14.77 cm ?? 20w0d ??[+/-2.06] ??(11.76 - 17.01) 61% HL: ??3.11 cm ?? 20w1d ? (2.41 - 3.41) 68% TCD: 1.86 cm ?? 18w6d ??[+/-1.80] ??(1.80 - 2.20) 22% NF: ??5.66 mm ? Cisterna Magna: 0.35 cm ? Lateral Ventricle: 0.61 cm ? RATIOS ??(Range) % ?? HC/AC: 1.19 ?(1.09 - 1.26) 57% ?? FL/BPD: 0.67 ? FL/AC: 0.21 ? LONG BONES SURVEY ??cm ??wks [+/-] (Range) % ?? Humerus: 3.11 cm ?? 20w1d ? (2.41 - 3.41) 68% Ulna: ?? 2.81 cm ? Radius: 2.41 cm ? Femur: 3.13 cm ?? 19w5d ??[+/-1.80] ??(2.56 - 3.73) 48% Tibia: 2.87 cm ? Fibula: 2.77 cm ? COMPUTATIONS GA: ?? 19w4d [+/-1.40] Method: ??MADAI MADAI: ??02/01/2024 Sono GA: ??19w5d [+/-1.40] Method: ?? BPD, HC, AC, FL Weight: ??346 gms. ??0 lb 12 oz. ??86% Method: ??BPD, HC, AC, FL OBSERVATIONS Amniotic Fluid Fluid Volume: ??Normal Placenta: ??Placenta is Posterior. ??There is no evidence of a placenta previa. Presentation: ?Cephalic Size: ?Normal for dates Growth: ??Small for dates. FHR: ??157 bpm Sex: ??Female ANATOMY Normal: Sag and Trans Cervical spine, Sag and Trans Thoracic spine, Sag and Trans Lumbar spine, Sag and Trans Sacral spine, Cerebellum, Vermis, Cisterna magna, Cerebral ventricle, Choroid plexus, Nuchal thickness, CSP, Midline falx, Palate, Maxilla, Mandible, Tongue, 4 chamber heart, Interventricular septum, Situs, RVOT, LVOT, 3VV, 3VT, Aortic arch, Ductal arch, SVC/IVC, Pulmonary veins, Chest/Heart/lungs, Diaphragm, Anterior abdominal wall, Abdominal cord insertion, Placental cord insert , 3 vessel cord, Stomach, Kidneys (coronal and trans), Renal arteries, Bladder, Face, Upper lip/nose, Profile/Nasal Bone, Orbits/lens, Upper extremities, Lower extremities, Hands, Feet COMMENTS Preliminary Read by Michelle Jewell on 09/11/2023 11:00:52 AM. Parimutuel Ticket Checker: ??Michelle Jewell Thank You For This Referral Procedure Note Andra Braxton M.D. - 09/11/2023 JULIETA GOODMAN OB Exam, 09/11/2023 EXAM INFORMATION Patient Name: JULIETA GOODMAN : 1995 Age: 28 yrs Sex: Female Ref Phys: MARLO ZUNIGA Exam Date: 09/11/2023 Procedure: US OB ADVANCED LEVEL FALLON Exam Site: [facility] OB #6 Plurality: 1 OBHx: [G:(2)] F Trm:() Pre:() C-Sec:() Ab-I:() Ab-S:() Ect:() Multi:() Elizabeth:(0) INDICATIONS FOR SONOGRAPHY History thickened nuchal translucency IMPRESSION Detailed Anatomy Survey Fetus: Live fallon intrauterine . Presentation: Cephalic. Anatomy: No structural abnormalities identified with detailed fetalanatomy survey. Growth: Appropriate for gestational age (1 day discrepancy). Amniotic fluid volume: Normal. Placenta: Posterior, with no evidence of placenta previa or vasa previa. Uterus: No uterine abnormalities are identified. Ovaries / Adnexa: Both ovaries appear normal. No adnexal abnormalities areidentified. Cervix: Appears long on transabdominal imaging. Conclusion: Live fallon intrauterine in cephalic presentation. No structural abnormalities identified with detailed anatomysurvey. Appropriate growth and normal amniotic fluid volume. Posterior placenta, with no placenta previa or vasa previa. MATERNAL MEASUREMENTS Cervix Length: 41.4 mm MEASUREMENTS eric wks [+/-] (Range) % BPD: 4.68 cm 20w1d [+/-1.73] (3.89 - 5.07) 74% FL: 3.13 cm 19w5d [+/-1.80] (2.56 - 3.73) 48% HC: 17.6 cm 20w1d [+/-1.48] (15.18 - 19.10) 68% AC: 14.77 cm 20w0d [+/-2.06] (11.76 - 17.01) 61% HL: 3.11 cm 20w1d (2.41 - 3.41) 68% TCD: 1.86 cm 18w6d [+/-1.80] (1.80 - 2.20) 22% NF: 5.66 mm Cisterna Magna: 0.35 cm Lateral Ventricle: 0.61 cm RATIOS (Range) % HC/AC: 1.19 (1.09 - 1.26) 57% FL/BPD: 0.67 FL/AC: 0.21 LONG BONES SURVEY cm wks [+/-] (Range) % Humerus: 3.11 cm 20w1d (2.41 - 3.41) 68% Ulna: 2.81 cm Radius: 2.41 cm Femur: 3.13 cm 19w5d [+/-1.80] (2.56 - 3.73) 48% Tibia: 2.87 cm Fibula: 2.77 cm COMPUTATIONS GA: 19w4d [+/-1.40] Method: MADAI MADAI: 02/01/2024 Sono GA: 19w5d [+/-1.40] Method: BPD, HC, AC, FL Weight: 346 gms. 0 lb 12 oz. 86% Method: BPD, HC, AC, FL OBSERVATIONS Amniotic Fluid Fluid Volume: Normal Placenta: Placenta is Posterior. There is no evidence of a placentaprevia. Presentation: Cephalic Size: Normal for dates Growth: Small for dates. FHR: 157 bpm Sex: Female ANATOMY Normal: Sag and Trans Cervical spine, Sag and Trans Thoracic spine, Sagand Trans Lumbar spine, Sag and Trans Sacral spine, Cerebellum, Vermis,Cisterna magna, Cerebral ventricle, Choroid plexus, Nuchal thickness, CSP,Midline falx, Palate, Maxilla, Mandible, Tongue, 4 chamber heart, Interventricular septum, Situs, RVOT,LVOT, 3VV, 3VT, Aortic arch, Ductal arch, SVC/IVC, Pulmonary veins,Chest/Heart/lungs, Diaphragm, Anterior abdominal wall, Abdominal cordinsertion, Placental cord insert , 3 vessel cord, Stomach, Kidneys (coronal and trans), Renal arteries, Bladder,Face, Upper lip/nose, Profile/Nasal Bone, Orbits/lens, Upper extremities,Lower extremities, Hands, Feet COMMENTS Preliminary Read by Michelle Jewell on 09/11/2023 11:00:52 AM. Parimutuel Ticket Checker: Michelle Jweell Thank You For This Referral Marlo Gastelum IMG OB US PROCEDUR ES documented in this encounter Visit Diagnoses Diagnosis Ultrasound Finding Suggesting Abnormality documented in this encounter
--- OUTSIDE RECORDS SUMMARY | 2023-11-14 17:10 | XMS_ITS | Clinical Summary ---
Author Organization [facility] Address [place], [place] [address] Care Team Providers Care Supply Service Worker Name Role Phone Molly Celeste Primary Care Provider +1- [phone] Allergies No known active allergies Medications Medication [...] DTP [birth year] DTaP 05/21/1999,08/30/1996 HIB PRP-OMP (PedvaxHIB) 08/30/1996,11/18,1995,07/27 Hepatitis A (Adult) 01/22/2022 Hepatitis B (Adult) 12/06/2015,07/03/2015 Hepatitis B (Peds) 03/04/1996,1995, 996 Inactivated Polio Vaccine 05/21/1999 Influenza Virus, Unspecified 12/11/2021 Influenza, IIV3 (Age >=3 years) 12/04/2017 Influenza, IIV4 12/17/2020,,11/28/2016,12/05 MENINGOCOCCAL VACCINE 2 VIAL 2MO-55YO (MENVEO) 09/15/2012 MMR 05/21/1999,08/30/1996 Oral Polio Vaccine 1995,1995, 996 Tdap 10/06/2016,08/06/2006 [...] Comments Blood Pressure 102/78 01/22/2022 9:34 AM ENFORCEMENT OFFICER Pulse 72 01/22/2022 9:34 AM ENFORCEMENT OFFICER Temperature 37.1 ??C (98.7 ??F) 08/30/2013 9:17 AM CD T Respiratory Rate 16 12/10/2018 8:35 AM CDT Oxygen Saturation - - Inhaled Oxygen Concentration - - Weight 68 kg (150 lb) 01/22/2022 9:34 AM ENFORCEMENT OFFICER Height 170.2 cm (5' 7) 01/22/2022 9:34 AM ENFORCEMENT OFFICER Body Mass Index 23.49 01/22/2022 9:34 AM ENFORCEMENT OFFICER Plan of Treatment Health Maintenance Due Date Last Done Comments HIV for age 15-65 05/19/2010 Hepatitis C screening for age 18-79 05/19/2013 BMI (ht and wt on same day) for age 18+ 01/22/2023 01/22/2022, 12/17/2020, 12/15/2019, Additional history exists Depression screening for age 12+ 01/22/2023 01/22/2022, 12/17/2020, 12/15/2019, Additional history exists COVID-19 vaccine series ( season) 2023 02/13/2021, 07/06/2020, 06/15/2020 Influenza for age 9-49 11/01/2023 2, 12/17/2020, 12/22/2019, Additional history exists Pap test for age 21-65 02/04/2026 3, 12/15/2019, 11/28/2016 Tetanus booster 10/06/2026 10/06/2016, 08/06/2006 Tdap Completed 10/06/2016, 08/06/2006 Pneumococcal series for age 6-64 Aged Out No longer eligible based on patient's age to complete this topic Procedures Procedure Name Priority Date/Time Associated Diagnosis Comments OCEANOGRAPHY PROFESSOR THIN PREP PAP SCREEN IMAGED Routine 02/04/2023 7:55 AM ENFORCEMENT OFFICER from Last 3 Months or Most Recently Relevant to Health Maintenance Results * OCEANOGRAPHY PROFESSOR THIN PREP PAP SCREEN IMAGED (02/04/2023 7:55 AM ENFORCEMENT OFFICER) Case Report Gynecologic Cytology Report ? Case: [id number] ? Authorizing Provider: ??Shelly Lugo MD ??Collected: ? 02/04/2023 0755 ? Ordering Location: ? [facility] ?Received: ?02/05/2023 1241 ? First Screen: ?Evelyn Estrella ? Specimen: ?OCEANOGRAPHY PROFESSOR ThinPrep Vial Screening, Cervical/Vaginal ? 02/12/2023 4:46 PM ENFORCEMENT OFFICER [facility] LABORATORY-C ENTRAL LABORATORY INTERPRETATION/ RESULT NEGATIVE FOR INTRAEPITHELIAL LESION OR MALIGNANCY (NIL) (none) 02/12/2023 4:46 PM ENFORCEMENT OFFICER [facility] ENTRAL LABORATORY IMEN ADEQUACY Satisfactory for evaluation Endocervical component present 02/12/2023 4:46 PM ENFORCEMENT OFFICER [facility] ENTRAL LABORATORY HPV REQUEST HPV not requested 2022 4:46 PM ENFORCEMENT OFFICER [facility] ENTRAL LABORATORY Date of LMP 02/12/2023 4:46 PM [facility]- ENTRAL LABORATORY Comment:unknown Last Pap Date 02/12/2023 4:46 PM ENFORCEMENT OFFICER [facility] ENTRAL LABORATORY Comment:unknown Last Pap Result NIL 4:46 PM ENFORCEMENT OFFICER [facility]- ENTRAL LABORATORY Abnormal Pap or Palatine Bx in last 5 years No 02/12/2023 4:46 PM ENFORCEMENT OFFICER [facility] ENTRAL LABORATORY Palatine Bx Done Today No 02/12/2023 4:46 PM ENFORCEMENT OFFICER [facility] ENTRAL LABORATORY Additional Information 02/12/2023 4:46 PM [facility] ENTRAL LABORATORY Comment: Interpreted at [facility] [employer] [facility], Central Laboratory - [address], [place] [address] Automated Review Successful 02/12/2023 4:46 PM [facility] ENTRAL LABORATORY Comment:Specimen processed s uccessfully by automated parts interpreter device, ThinPrep Imaging System, [employer] Note The pap test is a screening technique, not a diagnostic procedure. It is used primarily to screen for squamous cancers and precursor lesions. Published studies have shown that it is subject to both false negative and false positive results. The pap test should not be used as the sole means to diagnose or exclude pre-malignant and malignant lesions. 02/12/2023 4:46 PM ENFORCEMENT OFFICER [facility] LABORATORY-C ENTRAL LABORATORY Other (Cervical/Vagina l) 02/04/2023 7:55 AM ENFORCEMENT OFFICER 02/05/2023 12:41 PM ENFORCEMENT OFFICER Shelly Lugo MD [facility]-CENTRAL LABORATORY [address] [place] [address], [place] from Last 3 Months or Most Recently Relevant to Health Maintenance Care Teams Supply Service Worker Relationship Specialty Start Date End Date Molly Celeste PA PCP - General Physician Refinery Operator Helper 05/04/21
--- OUTSIDE RECORDS SUMMARY | 2023-11-14 17:10 | XMS_ITS | Clinical Summary ---
Author Organization [facility] Address [address] [place] [address] Care Team Providers Care Cnc Laser Operator Name Role Phone Unavailable Primary Care Provider Unavailabl e Source Comments Patient records contain information from all sites at [facility]. For routine questions regarding patient records, call [phone] during business hours, M-F 8:00 AM - 5:00 PM Central Time. Record requests for emergency care only can be directed to [phone] at any time.[facility] Allergies No known active allergies Medications Medication Sig Dispensed Refills Start Date End Date Status no115/iron/folic acid ( 19 ORAL) Take 1 tablet by mouth daily. 04/08/2023 Active Active Problems Patient Care Coordination No te Formatting of this note migh t be different from the original. Delivery plan: chart: Care Team/nursing team: Efrain/Bryson (Arin) Partner name: Pertinent medical issues for management (just critical diagnoses for ): Thickened nuchal translucency at 11 weeks---4mm /Maternal Board plans indicated: (yes or no) Genetic testing at delivery: Antepartum: Additional consults needed/completed: Echo - Jose - Anesthesia - Tour - Genetics - Done 07/12 Social Work - COVID: Flu Shot: Rhogam: Tdap: Rubella/Varicella status: 28 week labs: PHQ 9: GBS: Labor/Delivery Plan: Contraception plan: Education: NOB - Early - Mid - Late - Estimated Date of Delivery Comme nts Yes 02/01/2024 Based on Ultraso und No additional problems on file Encounters Date Type Department Care Team Description 10/05/2023 9:00 AM CDT Comprehensive Visit Division of Pediatric Cardiology in [place], [place] [address] [place] [address] Shiv Gale M.D. Ultrasound Finding Suggesting Abnormality 10/05/2023 6:54 AM CDT - 10/05/2023 11:59 PM CDT Hospital Encounter Department of Cardiovascular Diseases in [place], [place] [address] [place] [address] Marlo Zuniga M.B.B.S. Ultrasound Finding Suggesting Abnormality Discharge Disposition: Home or Self Care 09/11/2023 3:30 PM CDT Routine Department of Obstetrics and Gynecology in [place], [place] [address] [place] [address] Marlo Zuniga M.B.B.SRoz Ultrasound Finding Suggesting Abnormality (Primary Dx) 09/11/2023 9:32 AM CDT - 09/11/2023 11:59 PM CDT Hospital Encounter Department of Obstetrics and Gynecology in [place], [place] [address] [place] [address] Marlo Zuniga M.B.B.S. Ultrasound Finding Suggesting Abnormality Discharge Disposition: Home or Self Care 09/07/2023 Clinical Communication Department of Obstetrics and Gynecology in [place], [place] [address] [place] [address] Marlo Zuniga M.B.B.S. appointment from Last 3 Months Family History Medical History Relation Name Comments Hypertension Father No Known Problems Half-Brother Leukemia Maternal Grandfather Heart disease Maternal Grandmother No Known Problems Mother Hypertension Paternal Grandfather Kidney disease Paternal Grandfather Smoker Paternal Grandmother Stroke Paternal Grandmother x2 No Known Problems Sister Relation Name Status Comments Father Alive Half-Brother Alive Maternal Grandfather (Age 50s) Maternal Grandmother Alive Mother Alive Other 1 Alive Other 2 Alive Other 3 Fetus - In Utero Other 4 Fetus - Spontaneous Other 5 Alive Paternal Grandfather Alive Paternal Grandmother Sister Alive Social History Tobacco Use Types Packs/Day Years Used Date Smoking Tobacco: Never Smokeless Tobacco: Never Tobacco Cessation:Counseling Given: Not Answered Alcohol Use Standard Drinks/Week Comments Not Currently 0 (1 standard drink = 0.6 oz pur e alcohol) rare [facility] Utilities Answer Date Recorded In the past 12 months has [facility] [employer], [employer] or [employer] threatened to shut off services in your [...] your living situation today? I have a [facility] place to live 07/12/2023 Education Answer Date [...] Orientation Straight 07/12/2023 3: 43 PM CDT Last Filed Vital Signs Vital Sign Reading Time Taken Comments Blood Pressure 110/68 09/11/2023 3:13 PM CDT Pulse 69 09/11/2023 3:13 PM CDT Temperature - - Respiratory Rate - - Oxygen Saturation 100% 09/11/2023 3:13 PM CDT Inhaled Oxygen Concentration - - Weight 69.5 kg (153 lb 3.5 oz) 09/11/2023 3:13 P M CDT Height - - Body Mass Index - - Plan of Treatment Health Maintenance Due Date Last Done Comments HIV Screening 1995 Hepatitis C Screening 1995 Depression Screening (Annual PHQ-2) 03/02/2023 COVID-19 Vaccine ( season) 2023 02/13/2021, 07/06/2020, 06/15/2020 Influenza Vaccine (#1) 2023 , 12/11/2021, 12/17/2020, Additional history exists RSV vaccine - (32-36 weeks) or 60+ years (1 - Risk 1-dose series) 12/07/2023 Cervical Cancer Screening 02/04/2026 02/04/2023 DTaP,Tdap,and Td Vaccines (8 - Td or Tdap) 10/06/2026 10/06/2016, 08/06/2006, 05/21/1999, Additional history exists Hepatitis B Vaccines Completed 12/06/2015, 07/03/2015, 03/04/1996, Additional history exists HPV Vaccines Aged Out No longer eligi ble based on patient's age to complete this topic Pneumococcal vaccine (0-64 years) Aged Out No longer eligible based on patient's age to complete this topic Procedures Procedure Name Priority Date/Time Associated Diagnosis Comments FALLON ECHO 2D WITH COLOR AND DOPPLER Routine 10/05/2023 8:11 AM CDT Ultrasound Finding Suggesting Abnormality US OB ADVANCED LEVEL FALLON RAD - Routine (most inpatients and all outpatients) 09/11/2023 11:27 AM CDT Ultrasound Finding Suggesting Abnormality from Last 3 Months Results * FALLON ECHO 2D WITH COLOR AND DOPPLER (10/05/2023 8:11 AM CDT) Ejection Fraction [facility] Anatomical Region Laterality Modality Echocardiography 10/05/2023 7:06 AM CDT Impressions 10/05/2023 8:09 AM CDT discussed with family. 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 Normal great artery relationships. Fallon . lie: breech. For the complete report, see the Order-Level Documents. Narrative 10/05/2023 8:09 AM CDT For the complete report, see the Order-Level Documents. Final Impressions 1. echocardiogram performed due to history thickened nuchal translucency. 2. Estimated date of delivery 02/01/2024. ??Gestational age 23 weeks; 0 days. 3. Normal cardiac anatomy. 4. Normal cardiac dimensions. 5. Normal biventricular function. 6. Normal Doppler velocities. 7. Normal aortic arch. 8. Normal ductal arch. 9. Normal patency of the foramen ovale. 10. echocardiogram reveals normal sinus rhythm at a heart rate of 127 contr/min. 11. Normal umbilical cord Doppler velocities and profile. Three vessel cord. 12. No pericardial effusion. No hydrops. Comments Procedure Note Shiv Gale M.D. - 10/05/2023 For the complete report, see the Order-Level Documents. Final Impressions 1. echocardiogram performed due to history thickened nuchaltranslucency. 2. Estimated date of delivery 02/01/2024. Gestational age 23 weeks; 0days. 3. Normal cardiac anatomy. 4. Normal cardiac dimensions. 5. Normal biventricular function. 6. Normal Doppler velocities. 7. Normal aortic arch. 8. Normal ductal arch. 9. Normal patency of the foramen ovale. 10. echocardiogram reveals normal sinus rhythm at a heart rate of127 contr/min. 11. Normal umbilical cord Doppler velocities and profile. Three vesselcord. 12. No pericardial effusion. No hydrops. Comments Findings discussed with family. 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 Normal great artery relationships. Fallon . lie: breech. For the complete report, see the Order-Level Documents. Marlo Gastelum CV ECHO PROCEDURES * US OB Advanced Level Fallon (09/11/2023 11:27 AM CDT) Anatomical Region Laterality Modality Body, Ultrasound OB RST LOS, Ultrasound ARZ LOS N/A Ultrasound Narrative 09/11/2023 12:31 PM CDT GABRIELLA GOODMAN OB Exam, 09/11/2023 EXAM INFORMATION Patient Name: ??GABRIELLA GOODMAN : ??1995 Age: ??28 yrs Sex: ??Female Ref Phys: ??MARLO ZUNIGA Exam Date: 09/11/2023 Procedure: OB ADVANCED LEVEL FALLON Exam Site: [facility] OB #6 Plurality: 1 OBHx: [G:(2)] ?F [...] by Michelle Jewell on 09/11/2023 11:00:52 AM. Supervising Airplane Pilot: ??Michelle Jewell Thank You For This Referral Procedure Note Andra Braxton M.D. - 09/11/2023 GABRIELLA GOODMAN OB Exam, 09/11/2023 EXAM INFORMATION Patient Name: GABRIELLA GOODMAN : 1995 Age: 28 yrs Sex: Female Ref Phys: MARLO ZUNIGA Exam Date: 09/11/2023 Procedure: US OB ADVANCED LEVEL FALLON Exam Site: [facility] OB #6 Plurality: 1 OBHx: [G:(2)] F [...] by Michelle Jewell on 09/11/2023 11:00:52 AM. Supervising Airplane Pilot: Michelle Jewell Thank You For This Referral Marlo Quinones. IMG OB US ASHLEYUR ES from Last 3 Months
--- OUTSIDE RECORDS SUMMARY | 2023-11-14 17:10 | XMS_ITS | Encounter Summary ---
Author Organization [facility] Address [address] [place] [address] Care Team Providers Care Detention Attendant Name Role Phone Unavailable Primary Care Provider Unavailabl e Reason for Visit * Outpatient (Routine) - Closed Specialty Diagnoses / Procedures Referred By Ronnie palacios Referred To Contact Pediatric Cardiology Diagnoses Ultrasound Finding Suggesting Abnormality Ramos Zuniga M.B.B.S. [address] [place] [phone] [facility] Referral ID Status Reason Start Date Expiration Date Visits Re quested Visits Authorized [id number] Closed 09/11/2023 03/12/2025 1 1 Encounter Details Date Type Department Care Team (Latest Contact Info) Description 10/05/2023 9:00 AM CDT Comprehensive Visit Division of Pediatric Cardiology in [place], [place] [address] [place] [phone] Shiv Gale M.D. [address] [place] [phone] Ultrasound Finding Suggesting Abnormality Social History Tobacco Use Types Packs/Day Years Used Date Smoking Tobacco: Never Smokeless Tobacco: Never Alcohol Use Standard Drinks/Week Comments Not Currently 0 (1 standard drink = 0.6 oz pur e alcohol) rare [facility] Utilities Answer Date Recorded In the past 12 months has e electric, gas, oil, or water company threatened to shut off services in your [...] money to buy more. Never true 07/12/19 Within the past 12 months, t he [...] your living situation today? I have a [facility] place to live 07/12/2023 Education Answer [...] PM CDT documented as of this encounter Consult Notes * Shiv Gale M.D. - 10/05/2023 9:00 AM CDT Date of Consultation: 10/05/2023 Patient: Julieta Goodman Date of : 2023 Age: 28 y.o. CSN: [id number] HISTORY OF PRESENT ILLNESS Julieta is a 28-year-old currently at 23 weeks gestation. She presents for a echocardiogram today due to the finding of a thickened nuchal translucency earlier in gestation. Her has been uneventful to date. ECHOCARDIOGRAM echocardiogram performed due to history of thickened nuchal translucency. Estimated date of delivery 02/01/2024. Normal cardiac anatomy. Normal biventricular function. Normal cardiac dimensions. Normal biventricular function. Normal Doppler velocities. Normal aortic and ductal arches. Normal patency of the foramen ovale. echocardiogram reveals normal sinus rhythm at a heart rate of 127 beats per minute. Normal umbilical cord Doppler velocity and profile. Three vessel cord. No pericardial effusion. No hydrops. ASSESSMENT / PLAN The normal findings of today's study were discussed with Julieta and her family. All of their excellent questions were addressed. Thank you for the opportunity to meet with Julieta today. Shiv Gale MD documented in this encounter Plan of Treatment Not on file documented as of this encounter Visit Diagnoses Diagnosis Ultrasound Finding Suggesting Abnormality documented in this encounter
--- OUTSIDE RECORDS SUMMARY | 2023-11-14 17:10 | XMS_ITS | Encounter Summary ---
Author Organization [facility] Address [address] [place] [address] Care Team Providers Care Bookkeeping Teacher Name Role Phone Unavailable Primary Care Provider Unavailabl e Reason for Visit * Reason Onset Date Comments appointment 09/07/2023 Encounter Details Date Type Department Care Team (Late st Contact Info) Description 09/07/2023 Clinical Communication Department of Obstetrics and Gynecology in [place], [place] [address] [place] [phone] Ramos Zuniga M.B.B.S. [address] [place] [phone] appointment Social History Tobacco Use Types Packs/Day Years Used Date Smoking Tobacco: Never Smokeless Tobacco: Never Alcohol Use Standard Drinks/Week Comments Not Currently 0 (1 standard drink = 0.6 oz pur e alcohol) rare [facility] Utilities Answer Date Recorded In the past 12 months has e [employer], gas, oil, or water [employer] threatened to shut off services in your [...] your living situation today? I have a [facility] place to live 07/12/2023 Education Answer [...] PM CDT documented as of this encounter Plan of Treatment Not on file documented as of this encounter Visit Diagnoses Not on filedocumented in this encounter
--- OUTSIDE RECORDS SUMMARY | 2023-11-14 17:10 | XMS_ITS | Referral Summary ---
Author Organization [facility] Address [address] [place] [address] Care Team Providers Care Ict Help Desk Technician Name Role Phone Unavailable Primary Care Provider Unavailabl e Source Comments Patient records contain information from all sites at [facility]. For routine questions regarding patient records, call [phone] during business hours, M-F 8:00 AM - 5:00 PM Central Time. Record requests for emergency care only can be directed to [phone] at any time.[facility] Encounters Date Type Department Care Team Description 10/05/2023 9:00 AM CDT Comprehensive Visit Division of Pediatric Cardiology in [place], [place] [address] [place] [address] Shiv Gale M.D. Ultrasound Finding Suggesting Abnormality 10/05/2023 6:54 AM CDT - 10/05/2023 11:59 PM CDT Hospital Encounter Department of Cardiovascular Diseases in [place], [place] [address] [place] [phone] Marlo Zuniga M.B.B.S. Ultrasound Finding Suggesting Abnormality Discharge Disposition: Home or Self Care 09/11/2023 3:30 PM CDT Routine Department of Obstetrics and Gynecology in [place], [place] [address] [place] [address] Marlo Zuniga M.B.B.S. Ultrasound Finding Suggesting Abnormality (Primary Dx) 09/11/2023 9:32 AM CDT - 09/11/2023 11:59 PM CDT Hospital Encounter Department of Obstetrics and Gynecology in [place], [place] [address] [place] [address] Marlo Zuniga M.B.B.S. Ultrasound Finding Suggesting Abnormality Discharge Disposition: Home or Self Care 09/07/2023 Clinical Communication Department of Obstetrics and Gynecology in [place], [place] [address] [place] [address] Marlo Zuniga M.B.B.S. appointment from Last 3 Months Allergies No known active allergies Medications Medication Sig Dispensed Refills Start Date End Date Status no115/iron/folic acid ( 19 ORAL) Take 1 tablet by mouth daily. 04/08/2023 Active Active Problems Patient Care Coordination No te Formatting of this note migh t be different from the original. Delivery plan: chart: Care Team/nursing team: Efrain/Bryson (Josefina and Dwayne) Partner name: Pertinent medical issues for management [...] Ultraso und No additional problems on file Social History Tobacco Use Types Packs/Day Years Used Date Smoking Tobacco: Never Smokeless Tobacco: Never Tobacco Cessation:Counseling Given: Not Answered Alcohol Use Standard Drinks/Week Comments Not Currently 0 (1 standard drink = 0.6 oz pur e alcohol) rare [facility] Utilities Answer Date Recorded In the past 12 months has th e [employer], gas, oil, or water [employer] threatened to shut off services in your [...] your living situation today? I have a [facility] place to live 07/12/2023 Education Answer Date [...] Mass Index - - Plan of Treatment Not on file Procedures Procedure Name Priority Date/Time Associated Diagnosis [...] DOPPLER (10/05/2023 8:11 AM CDT) Ejection Fraction [facility] Anatomical Region Laterality Modality Echocardiography 10/05/2023 [...] Age: ??28 yrs Sex: ??Female Ref Phys: ??ANTONLEEANN ZUNIGA Exam Date: 09/11/2023 Procedure: US OB ADVANCED LEVEL FALLON Exam Site: [facility] OB #6 Plurality: 1 OBHx: [G:(2)] ?F [...] ? COMPUTATIONS GA: ?? 19w4d [+/-1.40] Method: ??MAADI MADAI: ??02/01/2024 Scout GA: ??19w5d [+/-1.40] Method: ?? BPD, HC, [...] by Michelle Jewell on 09/11/2023 11:00:52 AM. Tie Up Worker: ??Michelle Jewell Thank You For This Referral Procedure Note Andra Braxton M.D. - 09/11/2023 GABRIELLA GOODMAN OB Exam, 09/11/2023 EXAM INFORMATION Patient Name: GABRIELLA GOODMAN : 1995 Age: 28 yrs Sex: Female Ref Phys: MARLO ZUNIGA Exam Date: 09/11/2023 Procedure: OB ADVANCED LEVEL FALLON Exam Site: [facility] OB #6 Plurality: 1 OBHx: [G:(2)] F [...] by Michelle Jewell on 09/11/2023 11:00:52 AM. Tie Up Worker: Michelle Jewell Thank You For This Referral Marlo Gastelum IMG OB US ANGUS ES from Last 3 Months
--- OUTSIDE RECORDS SUMMARY | 2023-11-14 17:10 | XMS_ITS | Encounter Summary ---
Author Organization [facility] Address [address] [place] [address] Care Team Providers Care Chief Petroleum Engineer Name Role Phone Unavailable Primary Care Provider Unavailabl e Reason for Referral * Outpatient (Routine) - Closed Specialty Diagnoses / Procedures Referred By Contac t Referred To Contact Diagnoses Ultrasound Finding Suggesting Abnormality Procedures Echo Ramos Zuniga M.B.B.S. [address] [place] [address] Referral ID Status Reason Start Date Expiration Date Visits Re quested Visits Authorized [id number] Closed 09/11/2023 09/10/2024 1 1 * Outpatient (Routine) - Closed Specialty Diagnoses / Procedures Referred By Contac t Referred To Contact Pediatric Cardiology Diagnoses Ultrasound Finding Suggesting Abnormality Ramos Zuniga M.B.B.S. [address] [place] [address] [facility] Referral ID Status Reason Start Date Expiration Date Visits Re quested Visits Authorized [id number] Closed 09/11/2023 03/12/2025 1 1 Reason for Visit * Outpatient (Routine) - Closed Specialty Diagnoses / Procedures Referred By Ronnie t Referred To Contact Obstetrics and Gynecology Ramos Zuniga M.B.B.S. [address] [place] [phone] Ramos Zuniga M.B.B.S. [address] [place] [address] Referral ID Status Reason Start Date Expiration Date Visits Re quested Visits Authorized [id number] Closed 07/13/2023 01/11/2025 1 1 Encounter Details Date Type Department Care Team (Latest Contact Info) Description 09/11/2023 3:30 PM CDT Routine Department of Obstetrics and Gynecology in [place], [place] [address] [place] [phone] Ramos Zuniga M.B.B.S. [address] [place] [phone] Ultrasound Finding Suggesting Abnormality (Primary Dx) Social History Tobacco Use Types Packs/Day Years Used Date Smoking Tobacco: Never Smokeless Tobacco: Never Alcohol Use Standard Drinks/Week Comments Not Currently 0 (1 standard drink = 0.6 oz pur e alcohol) rare [facility] Utilities Answer Date Recorded In the past 12 months has [employer], gas, oil, or water [employer] threatened to shut off services in your [...] your living situation today? I have a [facility] place to live 07/12/2023 Education Answer Date [...] PM CDT documented as of this encounter Last Filed Vital Signs Vital Sign Reading Time Taken Comments Blood Pressure 110/68 09/11/2023 3:13 PM CDT Pulse 69 09/11/2023 3:13 PM CDT Temperature - - Respiratory Rate - - Oxygen Saturation 100% 09/11/2023 3:13 PM CDT Inhaled Oxygen Concentration - - Weight 69.5 kg (153 lb 3.5 oz) 09/11/2023 3:13 P M CDT Height - - Body Mass Index - - documented in this encounter Progress Notes * Ramos Zuniga M.B.B.SRoz - 09/11/2023 3:30 PM CDT SUBJECTIVE CHIEF COMPLAINT / REASON FOR VISIT Julieta Goodman is a 28 y.o. . No LMP recorded. Patient is . Her Estimated Date of Delivery: 02/01/24 determined by ultrasound at 9 weeks gestational age. Gestational age is 19w4d. She returns today for advanced level anatomy ultrasound due to previous ultrasound in the 1st trimester with a thickened nuchal translucency. HISTORY OF PRESENT CONDITION OBJECTIVE VITAL SIGNS Vitals: 09/11/23 1513 BP: 110/68 Pulse: 69 SpO2: 100% DIAGNOSTICS Ultrasound: 09/11/23 Conclusion: Live fallon intrauterine in cephalic presentation. No structural abnormalities identified with detailed anatomy survey. Appropriate growth and normal amniotic fluid volume. Posterior placenta, with no placenta previa or vasa previa. ASSESSMENT / PLAN We discussed today's ultrasound results including normal anatomy with absence of soft markersor suspicion for congenital malformation. We will obtain echo to further evaluate cardiac structures as indicated by an increased nuchal translucency. I have explained to Julieta that a normal advanced level ultrasound and echo most likely rule out major structural abnormalities however does not rule out smaller ones that can not be detected in the period. I have also explained that in fetuses with a thickened nuchal translucency with a normal screening genetic test and absence of major structural abnormality, there is still an increased risk of morbidity/mortality. And therefore, we would recommend to start testing after 32 weeks of by twice weekly testing alternating biophysical profile and NST. Delivery is recommended by 39 weeks and no later than 40 weeks of . Mode of delivery as per usual obstetrical indications. I personally spent 25 minutes in care of the patient today. Time includes both non face to face andface to face patient care. Teresa Valencia.S. documented in this encounter Plan of Treatment Scheduled Referrals Name Type Priority Associated Diagnoses Orde r Schedule Pediatric Cardiology - clinic consult (clinic) Outpatient Referral Routine Ultrasound Finding Suggesting Abnormality Expected: 10/02/2023, Expires: 12/11/2024 documented as of this encounter Results * FALLON ECHO 2D WITH COLOR AND DOPPLER (10/05/2023 8:11 AM CDT) [facility] Signature Ejection Fraction [facility] Anatomical Region Laterality Modality Echocardiography 10/05/2023 [...] the complete report, see the Order-Level Documents. Ramos MANCUSO ECHO PROCEDURES documented in this encounter Visit Diagnoses Diagnosis Ultrasound Finding Suggesting Abnormality- Primary Ultrasound Finding Suggesting Abnormality documented in this encounter
--- OUTSIDE RECORDS SUMMARY | 2023-11-14 17:10 | XMS_ITS | Encounter Summary ---
Author Organization [facility] Address [address] [place] [address] Care Team Providers Care Heel Trimmer Name Role Phone Unavailable Primary Care Provider Unavailabl e Reason for Referral * Outpatient (Routine) - Closed Specialty Diagnoses / Procedures Referred By Ronnie palacios Referred To Contact Diagnoses Ultrasound Finding Suggesting Abnormality Procedures Echo Ramos Zuniga M.B.B.S. [address] [place] [phone] Referral ID Status Reason Start Date Expiration Date Visits Re quested Visits Authorized [id number] Closed 09/11/2023 09/10/2024 1 1 Reason for Visit * Outpatient (Routine) - Closed Specialty Diagnoses / Procedures Referred By Ronnie palacios Referred To Contact Diagnoses Ultrasound Finding Suggesting Abnormality Procedures Echo Ramos Zuniga M.B.B.S. [address] [place] [phone] Referral ID Status Reason Start Date Expiration Date Visits Re quested Visits Authorized [id number] Closed 09/11/2023 09/10/2024 1 1 Encounter Details Date Type Department Care Team (Latest Contact Info) Description 10/05/2023 6:54 AM CDT - 10/05/2023 11:59 PM CDT Hospital Encounter Department of Cardiovascular Diseases in [place], [place] [address] [place] [phone] Ramos Zuniga M.B.B.S. [address] [place] [phone] Ultrasound Finding Suggesting Abnormality Discharge Disposition: Home or Self Care Social History Tobacco Use Types Packs/Day Years Used Date Smoking Tobacco: Never Smokeless Tobacco: Never Alcohol Use Standard Drinks/Week Comments Not Currently 0 (1 standard drink = 0.6 oz pur e alcohol) rare [facility] Utilities Answer Date Recorded In the past 12 months has th e electric, gas, oil, or water company [...] your living situation today? [facility] 07/12/2023 Education Answer Date [...] Procedure Name Priority Date/Time Associated Diagnosis Comments LING ECHO 2D WITH COLOR AND DOPPLER Routine 10/05/2023 8:11 AM CDT Ultrasound Finding Suggesting Abnormality documented in this encounter Results * LING ECHO 2D WITH COLOR AND DOPPLER (10/05/2023 8:11 AM CDT) Ejection Fraction [facility] Anatomical Region Laterality Modality Echocardiography 10/05/2023 7:06 AM CDT Impressions 10/05/2023 8:09 AM CDT discussed with family. 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 Normal great artery relationships. Ling . lie: breech. For the complete report, [...] and viscera withlevocardia. Normal great artery relationships. Ling . lie: breech. For the complete report, see the Order-Level Documents. Ramos Gastelum CV ECHO PROCEDURES documented in this encounter Visit Diagnoses Diagnosis Ultrasound Finding Suggesting Abnormality documented in this encounter
== END 2023-11-10 13:31 | disposition home or self-care (01) ==
LOC: NFLDREF 11-14 17:08
PROVIDERS: PCP Family Medicine; Referring Provider Family Medicine; Visit Provider Obstetrics & Gynecology
DX: Z34.83 Encounter for supervision of other normal pregnancy, third trimester (principal)
CPT/HCPCS: 86592

== ENCOUNTER 2023-11-17 08:15 | Outpatient (CLI) | payer OTHER, SELFPAY ==
--- OUTSIDE RECORDS SUMMARY | 2023-11-19 10:37 | XMS_ITS ---
Author Organization [facility] Address [address] [place] [address] Care Team Providers Care Laborer Mine Name Role Phone Unavailable Unavailable Unavailable Surgery Details Not on file Complications Check Surgery Details section. Procedure Estimated Blood Loss Check Surgery Details section. Procedure Findings Check Surgery Details section. Procedure Specimens Taken Check Surgery Details section.
--- OUTSIDE RECORDS SUMMARY | 2023-11-19 10:37 | XMS_ITS | Referral Summary ---
Author Organization [facility] Address [address] [place] [address] Care Team Providers Care Division Order Technician Name Role Phone Unavailable Primary Care Provider Unavailabl e Source Comments Patient records contain information from all sites at [facility]. For routine questions regarding patient records, call [phone] during business hours, M-F 8:00 AM - 5:00 PM Central Time. Record requests for emergency care only can be directed to [phone] at any time.[facility] Encounters Date Type Department Care Team Description 10/05/2023 9:00 AM CDT Comprehensive Visit Division of Pediatric Cardiology in [place], [place] [address] [place] [phone] Shiv Gale M.D. Ultrasound Finding Suggesting Abnormality 10/05/2023 6:54 AM CDT - 10/05/2023 11:59 PM CDT Hospital Encounter Department of Cardiovascular Diseases in [place], [place] [address] [place] [phone] Marlo Zuniga M.B.B.S. Ultrasound Finding Suggesting Abnormality Discharge Disposition: Home or Self Care 09/11/2023 3:30 PM CDT Routine Department of Obstetrics and Gynecology in [place], [place] [address] [place] [address] Marlo Zuniga M.B.B.S. Ultrasound Finding Suggesting Abnormality (Primary Dx) 09/11/2023 9:32 AM CDT - 09/11/2023 11:59 PM CDT Hospital Encounter Department of Obstetrics and Gynecology in [place], [place] [address] [place] [address] Marlo Zuniga M.B.B.S. Ultrasound Finding Suggesting Abnormality Discharge Disposition: Home or Self Care 09/07/2023 Clinical Communication Department of Obstetrics and Gynecology in [place], [place] [address] [place] [address] Marlo Zuniga M.B.B.S. appointment from Last 3 [...] = 0.6 oz pur e alcohol) rare [facility] Utilities Answer Date Recorded In the past 12 months has th e [employer], gas, oil, or water [employer] threatened to shut off services in your [...] your living situation today? I have a [facility] place to live 07/12/2023 Education Answer [...] DOPPLER (10/05/2023 8:11 AM CDT) Ejection Fraction [facility] Anatomical Region Laterality Modality Echocardiography 10/05/2023 7:06 [...] US OB ADVANCED LEVEL FALLON Exam Site: [facility] OB #6 Plurality: 1 OBHx: [G:(2)] [...] ?? 19w4d [+/-1.40] Method: ??MADAI MADAI: ??02/01/2024 Scout GA: ??19w5d [+/-1.40] Method: [...] by Michelle Jewell on 09/11/2023 11:00:52 AM. Utility Plant Operative: ??Michelle Jewell Thank You For This Referral Procedure Note Andra Braxton M.D. - 09/11/2023 GABRIELLA GOODMAN OB Exam, 09/11/2023 EXAM INFORMATION Patient Name: GABRIELLA GOODMAN : 1995 Age: 28 yrs Sex: Female Ref Phys: MARLO ZUNIGA Exam Date: 09/11/2023 Procedure: OB ADVANCED LEVEL FALLON Exam Site: [facility] OB #6 Plurality: 1 OBHx: [G:(2)] [...] by Michelle Jewell on 09/11/2023 11:00:52 AM. Utility Plant Operative: Michelle Jewell Thank You For This Referral Marlo Gastelum IMG OB US ANGUS ES from Last 3 Months
--- OUTSIDE RECORDS SUMMARY | 2023-11-19 10:37 | XMS_ITS | Encounter Summary ---
Author Organization [facility] Address [address] [place] [address] Care Team Providers Care Stage Builder Name Role Phone Unavailable Primary Care Provider Unavailabl e Reason for Visit * Outpatient (Routine) - Closed Specialty Diagnoses / Procedures Referred By Ronnie palacios Referred To Contact Pediatric Cardiology Diagnoses Ultrasound Finding Suggesting Abnormality Ramos Zuniga M.B.B.S. [address] [place] [phone] [facility] Referral ID Status Reason Start Date Expiration Date Visits Re quested Visits Authorized [id number] Closed 09/11/2023 03/12/2025 1 1 Encounter Details Date Type Department Care Team (Latest Contact Info) Description 10/05/2023 9:00 AM CDT Comprehensive Visit Division of Pediatric Cardiology in [place], [place] [address] [place] [phone] Shiv Gale M.D. [address] [place] [phone] Ultrasound Finding Suggesting Abnormality Social History Tobacco Use Types Packs/Day Years Used Date Smoking Tobacco: Never Smokeless Tobacco: Never Alcohol Use Standard Drinks/Week Comments Not Currently 0 (1 standard drink = 0.6 oz pur e alcohol) rare [facility] Utilities Answer Date Recorded In the [...] your living situation today? I have a [facility] place to live 07/12/2023 Education Answer [...] of : 2023 Age: 28 y.o. CSN: [id number] HISTORY OF PRESENT ILLNESS Julieta is a [...]
--- OUTSIDE RECORDS SUMMARY | 2023-11-19 10:37 | XMS_ITS | Clinical Summary ---
Author Organization [facility] Address [address] [place] [address] Care Team Providers Care Retail Administrative Assistant Name Role Phone Unavailable Primary Care Provider Unavailabl e Source Comments Patient records contain information from all sites at [facility]. For routine questions regarding patient records, call [phone] during business hours, M-F 8:00 AM - 5:00 PM Central Time. Record requests for emergency care only can be directed to [phone] at any time.[facility] Allergies No known active allergies Medications Medication [...] Comprehensive Visit Division of Pediatric Cardiology in [place], [place] [address] [place] [address] Shiv Gale M.D. Ultrasound Finding Suggesting Abnormality 10/05/2023 6:54 AM CDT - 10/05/2023 11:59 PM CDT Hospital Encounter Department of Cardiovascular Diseases in [place], [place] [address] [place] [address] Marlo Zuniga M.B.B.S. Ultrasound Finding Suggesting Abnormality Discharge Disposition: Home or Self Care 09/11/2023 3:30 PM CDT Routine Department of Obstetrics and Gynecology in [place], [place] [address] [place] [address] Marlo Zuniga M.B.B.SRoz Ultrasound Finding Suggesting Abnormality (Primary Dx) 09/11/2023 9:32 AM CDT - 09/11/2023 11:59 PM CDT Hospital Encounter Department of Obstetrics and Gynecology in [place], [place] [address] [place] [address] Marlo Zuniga M.B.B.S. Ultrasound Finding Suggesting Abnormality Discharge Disposition: Home or Self Care 09/07/2023 Clinical Communication Department of Obstetrics and Gynecology in [place], [place] [address] [place] [address] Marlo Zuniga M.B.B.S. appointment from Last 3 [...] = 0.6 oz pur e alcohol) rare [facility] Utilities Answer Date Recorded In the past 12 months has [facility], [employer] or [employer] threatened to shut off services in your [...] your living situation today? I have a [facility] place to live 07/12/2023 Education Answer [...] DOPPLER (10/05/2023 8:11 AM CDT) Ejection Fraction [facility] Anatomical Region Laterality Modality Echocardiography 10/05/2023 7:06 [...] Procedure: OB ADVANCED LEVEL FALLON Exam Site: [facility] OB #6 Plurality: 1 OBHx: [G:(2)] ?F [...] by Michelle Jewell on 09/11/2023 11:00:52 AM. Plastic Process Technician: ??Michelle Jewell Thank You For This Referral Procedure Note Andra Braxton M.D. - 09/11/2023 GABRIELLA GOODMAN OB Exam, 09/11/2023 EXAM INFORMATION Patient Name: GABRIELLA GOODMAN : 1995 Age: 28 yrs Sex: Female Ref Phys: MARLO ZUNIGA Exam Date: 09/11/2023 Procedure: US OB ADVANCED LEVEL FALLON Exam Site: [facility] OB #6 Plurality: 1 OBHx: [G:(2)] F [...] by Michelle Jewell on 09/11/2023 11:00:52 AM. Plastic Process Technician: Michelle Jewell Thank You For This Referral Marlo Quinones. IMG OB US ASHLEYUR ES from Last 3 Months
--- OUTSIDE RECORDS SUMMARY | 2023-11-19 10:38 | XMS_ITS | Encounter Summary ---
Author Organization [facility] Address [address] [place] [address] Care Team Providers Care Grappler Name Role Phone Unavailable Primary Care Provider Unavailabl e Reason for Referral * Outpatient (Routine) - Closed Specialty Diagnoses / Procedures Referred By Contac t Referred To Contact Diagnoses Ultrasound Finding Suggesting Abnormality Procedures Echo Ramos Zuniga M.B.B.S. [address] [place] [address] Referral ID Status Reason Start Date Expiration Date Visits Re quested Visits Authorized [id number] Closed 09/11/2023 09/10/2024 1 1 * Outpatient (Routine) - Closed Specialty Diagnoses / Procedures Referred By Contac t Referred To Contact Pediatric Cardiology Diagnoses Ultrasound Finding Suggesting Abnormality Ramos Zuniga M.B.B.S. [address] [place] [address] [facility] Referral ID Status Reason Start Date Expiration Date Visits Re quested Visits Authorized [id number] Closed 09/11/2023 03/12/2025 1 1 Reason for Visit * Outpatient (Routine) - Closed Specialty Diagnoses / Procedures Referred By Ronnie t Referred To Contact Obstetrics and Gynecology Ramos Zuniga M.B.B.S. [address] [place] [phone] Ramos Zuniga M.B.B.S. [address] [place] [address] Referral ID Status Reason Start Date Expiration Date Visits Re quested Visits Authorized [id number] Closed 07/13/2023 01/11/2025 1 1 Encounter Details Date Type Department Care Team (Latest Contact Info) Description 09/11/2023 3:30 PM CDT Routine Department of Obstetrics and Gynecology in [place], [place] [address] [place] [phone] Ramos Zuniga M.B.B.S. [address] [place] [phone] Ultrasound Finding Suggesting Abnormality (Primary Dx) Social History Tobacco Use Types Packs/Day Years Used Date Smoking Tobacco: Never Smokeless Tobacco: Never Alcohol Use Standard Drinks/Week Comments Not Currently 0 (1 standard drink = 0.6 oz pur e alcohol) rare [facility] Utilities Answer Date Recorded In the past 12 months has [employer], gas, oil, or water [employer] threatened to shut off services in your [...] your living situation today? I have a [facility] place to live 07/12/2023 Education Answer [...] COLOR AND DOPPLER (10/05/2023 8:11 AM CDT) [facility] Signature Ejection Fraction [facility] Anatomical Region Laterality Modality Echocardiography 10/05/2023 [...]
--- OUTSIDE RECORDS SUMMARY | 2023-11-19 10:38 | XMS_ITS | Encounter Summary ---
Author Organization [facility] Address [address] [place] [address] Care Team Providers Care Elementary Special Education Teacher Name Role Phone Unavailable Primary Care Provider Unavailabl e Reason for Visit * Reason Onset Date Comments appointment 09/07/2023 Encounter Details Date Type Department Care Team (Late st Contact Info) Description 09/07/2023 Clinical Communication Department of Obstetrics and Gynecology in [place], [place] [address] [place] [phone] Ramos Zuniga M.B.B.S. [address] [place] [phone] appointment Social History Tobacco Use Types Packs/Day Years Used Date Smoking Tobacco: Never Smokeless Tobacco: Never Alcohol Use Standard Drinks/Week Comments Not Currently 0 (1 standard drink = 0.6 oz pur e alcohol) rare [facility] Utilities Answer Date Recorded In the past 12 months has e [employer], gas, oil, or water [employer] threatened to shut off services in your [...] your living situation today? I have a [facility] place to live 07/12/2023 Education Answer [...]
--- OUTSIDE RECORDS SUMMARY | 2023-11-19 10:38 | XMS_ITS | Encounter Summary ---
Author Organization [facility] Address [address] [place] [address] Care Team Providers Care Robot Designer Name Role Phone Unavailable Primary Care Provider Unavailabl e Encounter Details Date Type Department Care Team (Latest Contact Info) Description 09/11/2023 9:32 AM CDT - 09/11/2023 11:59 PM CDT Hospital Encounter Department of Obstetrics and Gynecology in [place], [place] [address] [place] [address] Marlo Zuniga M.B.B.S. [address] [place] [address] Ultrasound Finding Suggesting Abnormality Discharge Disposition: Home or Self Care Social History Tobacco Use Types Packs/Day Years Used Date Smoking Tobacco: Never Smokeless Tobacco: Never Alcohol Use Standard Drinks/Week Comments Not Currently 0 (1 standard drink = 0.6 oz pur e alcohol) rare [facility] Utilities Answer Date Recorded In the past 12 months has [facility] [employer], gas, oil, or water [employer] threatened to shut off services in your [...] your living situation today? I have a [facility] place to live 07/12/2023 Education Answer [...] OB ADVANCED LEVEL FALLON Exam Site: [facility] OB #6 Plurality: 1 OBHx: [G:(2)] ?F [...] by Michelle Jewell on 09/11/2023 11:00:52 AM. Screen Repairer Crusher: ??Michelle Jewell Thank You For This Referral Procedure Note Andra Braxton M.D. - 09/11/2023 JULIETA GOODMAN OB Exam, 09/11/2023 EXAM INFORMATION Patient Name: JULIETA GOODMAN : 1995 Age: 28 yrs Sex: Female Ref Phys: MARLO ZUNIGA Exam Date: 09/11/2023 Procedure: US OB ADVANCED LEVEL FALLON Exam Site: [facility] OB #6 Plurality: 1 OBHx: [G:(2)] F [...] by Michelle Jewell on 09/11/2023 11:00:52 AM. Screen Repairer Crusher: Michelle Jewell Thank You For This Referral Marlo Gastelum IMG OB US PROCEDUR ES documented in this encounter Visit Diagnoses Diagnosis Ultrasound Finding Suggesting Abnormality documented in this encounter
--- OUTSIDE RECORDS SUMMARY | 2023-11-19 10:38 | XMS_ITS | Clinical Summary ---
Author Organization [email or web address] [facility] Address [place], [place] [address] Care Team Providers Care Merchant Mariner Name Role Phone Molly Celeste Primary Care Provider [phone] Allergies No known active allergies Medications Medication [...] Comments Blood Pressure 102/78 01/22/2022 9:34 AM FRUIT WORKER Pulse 72 01/22/2022 9:34 AM FRUIT WORKER Temperature 37.1 ??C (98.7 ??F) 08/30/2013 9:17 AM CD T Respiratory Rate 16 12/10/2018 8:35 AM CDT Oxygen Saturation - - Inhaled Oxygen Concentration - - Weight 68 kg (150 lb) 01/22/2022 9:34 AM FRUIT WORKER Height 170.2 cm (5' 7) 01/22/2022 9:34 AM FRUIT WORKER Body Mass Index 23.49 01/22/2022 9:34 AM FRUIT WORKER Plan of Treatment Health Maintenance Due Date [...] Procedure Name Priority Date/Time Associated Diagnosis Comments PATCHER WOOD WELDER THIN PREP PAP SCREEN IMAGED Routine 02/04/2023 7:55 AM FRUIT WORKER from Last 3 Months or Most Recently Relevant to Health Maintenance Results * PATCHER WOOD WELDER THIN PREP PAP SCREEN IMAGED (02/04/2023 7:55 AM FRUIT WORKER) Case Report Gynecologic Cytology Report ? Case: [id number] ? Authorizing Provider: ??Shelly Lugo MD ??Collected: ? 02/04/2023 0755 ? Ordering Location: ? [facility] ?Received: ?02/05/2023 1241 ? First Screen: ?Evelyn Estrella ? Specimen: ?PATCHER WOOD WELDER ThinPrep Vial Screening, Cervical/Vaginal ? 02/12/2023 4:46 PM FRUIT WORKER [facility] LABORATORY-C ENTRAL LABORATORY INTERPRETATION/ RESULT NEGATIVE FOR INTRAEPITHELIAL LESION OR MALIGNANCY (NIL) (none) 02/12/2023 4:46 PM FRUIT WORKER [facility] ENTRAL LABORATORY IMEN ADEQUACY Satisfactory for evaluation Endocervical component present 02/12/2023 4:46 PM FRUIT WORKER [facility] [employer] [facility] ENTRAL LABORATORY HPV REQUEST HPV not requested 2022 4:46 PM FRUIT WORKER [facility] ENTRAL LAB[facility]ATORY Date of LMP 02/12/2023 4:46 PM [facility]- ENTRAL LABORATORY Comment:unknown Last Pap Date 02/12/2023 4:46 PM FRUIT WORKER [facility] ENTR[facility] LAB[facility]ORY Comment:unknown Last Pap Result NIL 4:46 PM FRUIT WORKER [facility]- ENTRAL LABORATORY Abnormal Pap or Fletcher Bx in last 5 years No 02/12/2023 4:46 PM FRUIT WORKER [facility] ENTRAL LABORATORY Fletcher Bx Done Today No 02/12/2023 4:46 PM FRUIT WORKER [facility] ENTRAL LAB[facility]ORY Additional Information 02/12/2023 4:46 PM [facility] ENTRAL LABORATORY Comment: Interpreted at [facility], Central Laboratory - [address], [place] [address] Automated Review Successful 02/12/2023 4:46 PM [facility] ENTRAL LABORATORY Comment:Specimen processed s uccessfully by automated lithographic press feeder device, ThinPrep Imaging System, [employer] Note The pap test is a screening technique, not a diagnostic procedure. It is used primarily to screen for squamous cancers and precursor lesions. Published studies have shown that it is subject to both false negative and false positive results. The pap test should not be used as the sole means to diagnose or exclude pre-malignant and malignant lesions. 02/12/2023 4:46 PM FRUIT WORKER [facility] LABORATORY-C ENTRAL LABORATORY Other (Cervical/Vagina l) 02/04/2023 7:55 AM FRUIT WORKER 02/05/2023 12:41 PM FRUIT WORKER Shelly Lugo MD PATHOLOGY/[facility] LAB[facility]-CENTRAL LABORATORY [address] [place] [address], [place] from Last 3 Months or Most Recently Relevant to Health Maintenance Care Teams Merchant Mariner Relationship Specialty Start Date End Date Molly Celeste PA PCP - General Physician Geochemical Laboratory Technician 05/04/21
--- OUTSIDE RECORDS SUMMARY | 2023-11-19 10:38 | XMS_ITS | Encounter Summary ---
Author Organization [facility] Address [address] [place] [address] Care Team Providers Care Wellness Program Administrator Name Role Phone Unavailable Primary Care Provider Unavailabl e Reason for Referral * Outpatient (Routine) - Closed Specialty Diagnoses / Procedures Referred By Ronnie palacios Referred To Contact Diagnoses Ultrasound Finding Suggesting Abnormality Procedures Echo Ramos Zuniga M.B.B.S. [address] [place] [phone] Referral ID Status Reason Start Date Expiration Date Visits Re quested Visits Authorized [id number] Closed 09/11/2023 09/10/2024 1 1 Reason for Visit * Outpatient (Routine) - Closed Specialty Diagnoses / Procedures Referred By Ronnie palacios Referred To Contact Diagnoses Ultrasound Finding Suggesting Abnormality Procedures Echo Ramos Zuniga M.B.B.S. [address] [place] [phone] Referral ID Status Reason Start Date Expiration Date Visits Re quested Visits Authorized [id number] Closed 09/11/2023 09/10/2024 1 1 Encounter Details Date Type Department Care Team (Latest Contact Info) Description 10/05/2023 6:54 AM CDT - 10/05/2023 11:59 PM CDT Hospital Encounter Department of Cardiovascular Diseases in [place], [place] [address] [place] [phone] Ramos Zuniga M.B.B.S. [address] [place] [phone] Ultrasound Finding Suggesting Abnormality Discharge Disposition: Home or Self Care Social History Tobacco Use Types Packs/Day Years Used Date Smoking Tobacco: Never Smokeless Tobacco: Never Alcohol Use Standard Drinks/Week Comments Not Currently 0 (1 standard drink = 0.6 oz pur e alcohol) rare [facility] Utilities Answer Date Recorded In the [...] your living situation today? [facility] 07/12/2023 Education Answer Date [...] (10/05/2023 8:11 AM CDT) Ejection Fraction [facility] Anatomical Region Laterality Modality Echocardiography 10/05/2023 7:06 [...]
== END 2023-11-17 08:16 | disposition home or self-care (01) ==
LOC: NFLDREF 11-19 10:35
PROVIDERS: PCP Family Medicine; Referring Provider Family Medicine; Visit Provider Obstetrics & Gynecology
DX: Z34.90 Encounter for supervision of normal pregnancy, unspecified, unspecified trimester (principal)
CPT/HCPCS: 82951; 82952

== ENCOUNTER 2023-12-07 08:07 | Outpatient (CLI) | payer OTHER, SELFPAY ==
--- NOTE | 2023-12-07 08:15 | CRLHL7_ITS ---
For Patients: As a result of the Century Cures Act, medical imaging exams and procedure reports are released immediately into your electronic medical record. You may view this report before your referring provider. If you have questions, please contact your health care provider. INDICATION: Nuchal fold thickening on prior ultrasound TECHNIQUE: Real time mclain scale imaging of the fetus was performed. COMPARISON: 06/30/2023 FINDINGS: Sonographic imaging demonstrates a single living intrauterine gestation. Fetus demonstrates a regular cardiac rate of 161 beats per minute. Fetus has a vertex position. The placenta lies posteriorly. Amniotic fluid volume appears normal and there is a single deepest pocket of 5.3 cm. The estimated weight is 2147gm which lies at the 78th %. BPD greater than 97th percentile. HC 87th percentile. AC 81st percentile. FL 41st percentile. The fetus was active and demonstrated normal breathing movements. There was normal flexion and extension of the trunk and extremities. IMPRESSION: Normal biophysical profile score 8/8. Sonographic gestational age 33 weeks 6 days and sonographic due date of 01/19/2024. Sonographic age 13 days ahead of the clinical age. Estimated weight is 78th percentile. Abdominal circumference 81st percentile. Dictated by Giuseppe Quintanilla MD @ 12/07/2023 9:39:08 AM (Electronically Signed)
== END 2023-12-07 08:08 | disposition home or self-care (01) ==
LOC: US 08:08
PROVIDERS: PCP Family Medicine; Visit Provider Obstetrics & Gynecology
DX: Z34.93 Encounter for supervision of normal pregnancy, unspecified, third trimester (principal); O36.63X0 Maternal care for excessive fetal growth, third trimester, not applicable or unspecified; Z3A.33 33 weeks gestation of pregnancy
CPT/HCPCS: 76816; 76819

== ENCOUNTER 2024-01-04 11:40 | Outpatient (CLI) | payer OTHER, SELFPAY ==
--- OUTSIDE RECORDS SUMMARY | 2024-01-04 11:41 | XMS_ITS | Clinical Summary ---
Author Organization [facility] Address [address] [place] [address] Care Team Providers Care Nick Setter Name Role Phone Unavailable Primary Care Provider Unavailabl e Source Comments Patient records contain information from all sites at [facility]. For routine questions regarding patient records, call [phone] during business hours, M-F 8:00 AM - 5:00 PM Central Time. Record requests for emergency care only can be directed to [phone] at any time.[facility] Allergies No known active allergies Medications no115/iron/folic acid ( 19 ORAL) Take 1 [...] Comprehensive Visit Division of Pediatric Cardiology in [place], [place] [address] [place] [address] Shiv Gale M.D. Ultrasound Finding Suggesting Abnormality 10/05/2023 6:54 AM CDT - 10/05/2023 11:59 PM CDT Hospital Encounter Department of Cardiovascular Diseases in [place], [place] [address] [place] [address] Ramos Zuniga M.B.B.S. Ultrasound Finding Suggesting Abnormality Discharge Disposition: Home or Self Care from Last 3 Months Immunizations Name Administration Dates Next Due SARS-COV-2 (COVID-19) - MODE RNA (12 YEARS AND OLDER) Fall Seasonal 12/22/2023 influenza trivalent vaccine (6 months and older) (PF) 12/22/2023 Family History Medical History Relation Name Comments [...] 0.6 oz pur e alcohol) rare [facility] Utilities Answer Date Recorded In the past 12 months has [facility] [place], [employer], or water [employer] threatened to shut off services in your [...] your living situation today? I have a [facility] place to live 07/12/2023 Education Answer Date Recorded What is the highest level of school you have completed or the highest degree you have received? Associate degree: academic program 07/03/2023 Estimated Date of Delivery Comme nts Yes 02/01/2024 Based on Ultraso und Sex and Gender Information Value Date Recorded Sex Assigned at Female 07/12/2023 3:43 PM CDT Legal Sex Female 2:55 PM CDT Gender Identity Female 07/12/2023 3:43 [...] HIV Screening 1995 Hepatitis C Screening 1995 IPV Vaccines (2 of 3 - 4-dose series) 06/18/1999 05/21/1999 Depression Screening (Annual PHQ-2) 03/02/2023 RSV vaccine - (32-36 weeks) or 60+ years (1 - Risk 1-dose series) 12/07/2023 Cervical/Vaginal Cancer Screening 02/04/2026 02/04/2023 DTaP,Tdap,and Td Vaccines (8 - Td or Tdap) 10/06/2026 10/06/2016, 08/06/2006, 05/21/1999, Additional history exists Hepatitis B Vaccines Completed 12/06/2015, 07/03/2015, 03/04/1996, Additional history exists COVID-19 Vaccine Completed 12/22/2023, , 07/06/2020, Additional history exists Influenza Vaccine Completed 12/22/2023, , 12/11/2021, Additional history exists HPV Vaccines Aged Out No longer eligi ble based on patient's age to complete this topic Pneumococcal vaccine (0-64 years) Aged Out No longer eligible based on patient's age to complete this topic Procedures Procedure Name Priority Date/Time Associated Diagnosis Comments LING ECHO 2D WITH COLOR AND DOPPLER Routine 10/05/2023 8:11 AM CDT Ultrasound Finding Suggesting Abnormality from Last 3 Months Results * LING ECHO 2D WITH COLOR AND DOPPLER (10/05/2023 8:11 AM CDT) Ejection Fraction [facility] Anatomical Region Laterality Modality Echocardiography 10/05/2023 [...] Order-Level Documents. Ramos Gastelum CV ECHO PROCEDURES Final R esult from Last 3 Months Insurance [employer] [place] [employer]
--- OUTSIDE RECORDS SUMMARY | 2024-01-04 11:42 | XMS_ITS | Encounter Summary ---
Author Organization [facility] Address [address] [place] [address] Care Team Providers Care Hogshead Salvage Name Role Phone Unavailable Primary Care Provider Unavailabl e Reason for Referral * Outpatient (Routine) - Closed Specialty Diagnoses / Procedures Referred By Ronnie palacios Referred To Contact Diagnoses Ultrasound Finding Suggesting Abnormality Procedures Echo Ramos Zuniga M.B.B.S. [address] [place] [phone] Phone: tel: fax: Referral ID Status Reason Start Date Expiration Date Visits Re quested Visits Authorized [id number] Closed 09/11/2023 09/10/2024 1 1 Reason for Visit * Outpatient (Routine) - Closed Specialty Diagnoses / Procedures Referred By Ronnie palacios Referred To Contact Diagnoses Ultrasound Finding Suggesting Abnormality Procedures Echo Ramos Zuniga M.B.B.S. [address] [place] [phone] Phone: tel: fax: Referral ID Status Reason Start Date Expiration Date Visits Re quested Visits Authorized [id number] Closed 09/11/2023 09/10/2024 1 1 Encounter Details Date Type Department Care Team (Latest Contact Info) Description 10/05/2023 6:54 AM CDT - 10/05/2023 11:59 PM CDT Hospital Encounter Department of Cardiovascular Diseases in [place], [place] [address] [place] [phone] Ramos Zuniga M.B.B.S. [address] [place] [address] Ultrasound Finding Suggesting Abnormality Discharge Disposition: Home or Self Care Social History Tobacco Use Types Packs/Day Years Used Date Smoking Tobacco: Never Smokeless Tobacco: Never Alcohol Use Standard Drinks/Week Comments Not Currently 0 (1 standard drink = 0.6 oz pur e alcohol) rare [facility] Utilities Answer Date Recorded In the past 12 months has e [employer], gas, oil, or water [employer] threatened to shut off services in your [...] your living situation today? I have a [facility] place to live 07/12/2023 Education Answer [...] this encounter Medications at Time of Discharge no115/iron/folic acid ( 19 ORAL) Take 1 [...] DOPPLER (10/05/2023 8:11 AM CDT) Ejection Fraction [facility] Anatomical Region Laterality Modality Echocardiography 10/05/2023 [...] Gastelum CV ECHO PROCEDURES Final R esult documented in this encounter Visit Diagnoses Diagnosis Ultrasound Finding Suggesting Abnormality documented in this encounter
--- OUTSIDE RECORDS SUMMARY | 2024-01-04 11:42 | XMS_ITS ---
Author Organization [facility] Address [address] [place] [address] Care Team Providers Care Ice Guard Skating Rink Name Role Phone Unavailable Unavailable Unavailable Surgery Details Not on file Complications Check Surgery Details section. Procedure Estimated Blood Loss Check Surgery Details section. Procedure Findings Check Surgery Details section. Procedure Specimens Taken Check Surgery Details section.
--- OUTSIDE RECORDS SUMMARY | 2024-01-04 11:42 | XMS_ITS | Encounter Summary ---
Author Organization [facility] Address [address] [place] [address] Care Team Providers Care Compliance Review Officer Name Role Phone Unavailable Primary Care Provider Unavailabl e Reason for Visit * Reason Onset Date Comments appointment 09/07/2023 Encounter Details Date Type Department Care Team (Late st Contact Info) Description 09/07/2023 Clinical Communication Department of Obstetrics and Gynecology in [place], [place] [address] [place] [phone] Ramos Zuniga M.B.B.S. [address] [place] [address] appointment Social History Tobacco Use Types Packs/Day Years Used Date Smoking Tobacco: Never Smokeless Tobacco: Never Alcohol Use Standard Drinks/Week Comments Not Currently 0 (1 standard drink = 0.6 oz pur e alcohol) rare [facility] Utilities Answer Date Recorded In the past 12 months has e [employer], gas, oil, or water [employer] threatened to shut off services in your [...] your living situation today? I have a [facility] place to live 07/12/2023 Education Answer [...]
--- OUTSIDE RECORDS SUMMARY | 2024-01-04 11:42 | XMS_ITS | Clinical Summary ---
Author Organization [facility] Address [place], [place] [address] Care Team Providers Care Electric Meter Repairer Helper Name Role Phone Molly Celeste Primary Care Provider [phone] Allergies No known active allergies Medications Medication [...] Comments Blood Pressure 102/78 01/22/2022 9:34 AM HEADING SAW OPERATOR Pulse 72 01/22/2022 9:34 AM HEADING SAW OPERATOR Temperature 37.1 ??C (98.7 ??F) 08/30/2013 9:17 AM CD T Respiratory Rate 16 12/10/2018 8:35 AM CDT Oxygen Saturation - - Inhaled Oxygen Concentration - - Weight 68 kg (150 lb) 01/22/2022 9:34 AM HEADING SAW OPERATOR Height 170.2 cm (5' 7) 01/22/2022 9:34 AM HEADING SAW OPERATOR Body Mass Index 23.49 01/22/2022 9:34 AM HEADING SAW OPERATOR Plan of Treatment Health Maintenance Due Date Last Done Comments HIV for age 15-65 05/19/2010 Hepatitis C screening for age 18-79 05/19/2013 BMI (ht and wt on same day) for age 18+ 01/22/2023 01/22/2022, 12/17/2020, 12/15/2019, Additional history exists Depression screening for age 12+ 01/22/2023 01/22/2022, 12/17/2020, 12/15/2019, Additional history exists COVID-19 vaccine series (2023- season) 2023 02/13/2021, 07/06/2020, 06/15/2020 Influenza for age 9-49 11/01/2023 2, 12/17/2020, 12/22/2019, Additional history exists Pap test for age 21-65 02/04/2026 3, 12/15/2019, 11/28/2016 Tetanus booster 10/06/2026 10/06/2016, 08/06/2006 Tdap Completed 10/06/2016, 08/06/2006 Pneumococcal series for age 6-64 Aged Out No longer eligible based on patient's age to complete this topic Procedures Procedure Name Priority Date/Time Associated Diagnosis Comments BLASTING HELPER THIN PREP PAP SCREEN IMAGED Routine 02/04/2023 7:55 AM HEADING SAW OPERATOR from Last 3 Months or Most Recently Relevant to Health Maintenance Results * BLASTING HELPER THIN PREP PAP SCREEN IMAGED (02/04/2023 7:55 AM HEADING SAW OPERATOR) Case Report Gynecologic Cytology Report ? Case: [id number] ? Authorizing Provider: ??Shelly Lugo MD ??Collected: ? 02/04/2023 0755 ? Ordering Location: ? [facility] ?Received: ?02/05/2023 1241 ? First Screen: ?Evelyn Estrella ? Specimen: ?BLASTING HELPER ThinPrep Vial Screening, Cervical/Vaginal ? 02/12/2023 4:46 PM HEADING SAW OPERATOR [facility] LABORATORY-C ENTRAL LABORATORY INTERPRETATION/ RESULT NEGATIVE FOR INTRAEPITHELIAL LESION OR MALIGNANCY (NIL) (none) 02/12/2023 4:46 PM HEADING SAW OPERATOR [facility] ENTRAL LABORATORY IMEN ADEQUACY Satisfactory for evaluation Endocervical component present 02/12/2023 4:46 PM HEADING SAW OPERATOR [facility] ENTRAL LAB[facility] HPV REQUEST HPV not requested 2022 4:46 PM HEADING SAW OPERATOR [facility] ENTRAL LABORATORY Date of LMP 02/12/2023 4:46 PM [facility]- ENTRAL LABORATORY Comment:unknown Last Pap Date 02/12/2023 4:46 PM HEADING SAW OPERATOR [facility] ENTRAL LABORATORY Comment:unknown Last Pap Result NIL 4:46 PM HEADING SAW OPERATOR [facility]- ENTRAL LABORATORY Abnormal Pap or Mehoopany Bx in last 5 years No 02/12/2023 4:46 PM HEADING SAW OPERATOR [facility] ENTRAL LABORATORY Mehoopany Bx Done Today No 02/12/2023 4:46 PM HEADING SAW OPERATOR [facility] ENTRAL LABORATORY Additional Information 02/12/2023 4:46 PM [facility] ENTRAL LABORATORY Comment: Interpreted at [facility] Algorithmics [facility], Central Laboratory - [address], [place] [address] Automated Review Successful 02/12/2023 4:46 PM [facility] ENTRAL LABORATORY Comment:Specimen processed s uccessfully by automated ict customer support officer device, ThinPrep Imaging System, [employer] Note The pap test is a screening technique, not a diagnostic procedure. It is used primarily to screen for squamous cancers and precursor lesions. Published studies have shown that it is subject to both false negative and false positive results. The pap test should not be used as the sole means to diagnose or exclude pre-malignant and malignant lesions. 02/12/2023 4:46 PM HEADING SAW OPERATOR [facility] LABORATORY-C ENTRAL LABORATORY Other (Cervical/Vagina l) 02/04/2023 7:55 AM HEADING SAW OPERATOR 02/05/2023 12:41 PM HEADING SAW OPERATOR Shelly Lugo MD [facility]-CENTRAL LABORATORY [address] [place] [address], [place] from Last 3 Months or Most Recently Relevant to Health Maintenance Care Teams Electric Meter Repairer Helper Relationship Specialty Start Date End Date Molly Celeste PA PCP - General Physician Commercial Agent 05/04/21
--- OUTSIDE RECORDS SUMMARY | 2024-01-04 11:42 | XMS_ITS | Referral Summary ---
Author Organization [facility] Address [address] [place] [address] Care Team Providers Care Business Management Professor Name Role Phone Unavailable Primary Care Provider Unavailabl e Source Comments Patient records contain information from all sites at [facility]. For routine questions regarding patient records, call [phone] during business hours, M-F 8:00 AM - 5:00 PM Central Time. Record requests for emergency care only can be directed to [phone] at any time.[facility] Encounters Date Type Department Care Team Description 10/05/2023 9:00 AM CDT Comprehensive Visit Division of Pediatric Cardiology in [place], [place] [address] [place] [address] Shiv Gale M.D. Ultrasound Finding Suggesting Abnormality 10/05/2023 6:54 AM CDT - 10/05/2023 11:59 PM CDT Hospital Encounter Department of Cardiovascular Diseases in [place], [place] [address] [place] [address] Ramos Zuniga M.B.B.S. Ultrasound Finding Suggesting Abnormality Discharge Disposition: Home or Self Care from Last 3 Months Allergies No known active allergies Medications no115/iron/folic acid ( 19 ORAL) Take 1 tablet by mouth daily. 04/08/2023 Active Active Problems Patient Care Coordination No te Formatting of this note migh t be different from the original. Delivery plan: chart: Care Team/nursing team: Efrain/Bryson (rAin) Partner name: Pertinent medical issues for management [...] Ultraso und No additional problems on file Immunizations Name Administration Dates Next Due SARS-COV-2 (COVID-19) - MODE RNA (12 YEARS AND OLDER) Fall Seasonal 12/22/2023 influenza trivalent vaccine (6 months and older) (PF) 12/22/2023 Social History Tobacco Use Types Packs/Day Years Used Date Smoking Tobacco: Never Smokeless Tobacco: Never Tobacco Cessation:Counseling Given: Not Answered Alcohol Use Standard Drinks/Week Comments Not Currently 0 (1 standard drink = 0.6 oz pur e alcohol) rare [facility] Utilities Answer Date Recorded In the past 12 months has e [employer], oil, or water [employer] threatened to shut off services in your [...] your living situation today? I have a [facility] place to live 07/12/2023 Education Answer Date [...] DOPPLER (10/05/2023 8:11 AM CDT) Ejection Fraction [facility] Anatomical Region Laterality Modality Echocardiography [...] the complete report, see the Order-Level Documents. us Ramos Gastelum CV ECHO PROCEDURES Final R esult from Last 3 Months Insurance [employer] [place] [employer]EE [facility] Address: [facility] [id number] [place] [id number]
--- OUTSIDE RECORDS SUMMARY | 2024-01-04 11:42 | XMS_ITS | Encounter Summary ---
Author Organization [facility] Address [address] [place] [address] Care Team Providers Care Middle School Coach Name Role Phone Unavailable Primary Care Provider Unavailabl e Reason for Visit * Outpatient (Routine) - Closed Specialty Diagnoses / Procedures Referred By Ronnie palacios Referred To Contact Pediatric Cardiology Diagnoses Ultrasound Finding Suggesting Abnormality Ramos Zuniga M.B.B.SRoz [address] [place] [phone] Phone: tel: fax: [facility] Referral ID Status Reason Start Date Expiration Date Visits Re quested Visits Authorized [id number] Closed 09/11/2023 03/12/2025 1 1 Encounter Details Date Type Department Care Team (Latest Contact Info) Description 10/05/2023 9:00 AM CDT Comprehensive Visit Division of Pediatric Cardiology in [place], [place] [address] [place] [phone] Shiv Gale M.D. [address] [place] [phone] Ultrasound Finding Suggesting Abnormality Social History Tobacco Use Types Packs/Day Years Used Date Smoking Tobacco: Never Smokeless Tobacco: Never Alcohol Use Standard Drinks/Week Comments Not Currently 0 (1 standard drink = 0.6 oz pur e alcohol) rare [facility] Utilities Answer Date Recorded In [...] your living situation today? I have a [facility] place to live 07/12/2023 Education Answer [...] of : 2023 Age: 28 y.o. CSN: [id number] HISTORY OF PRESENT ILLNESS Julieta is a [...]
[2024-01-05 12:47] LABS: Strep B DNA Probe Negative (Negative)
[2024-01-05 12:59] LABS: Strep B Susceptibility Needed? No
== END 2024-01-04 11:41 | disposition home or self-care (01) ==
LOC: NFLDREF 11:40
PROVIDERS: PCP Family Medicine; Visit Provider Obstetrics & Gynecology
DX: Z34.93 Encounter for supervision of normal pregnancy, unspecified, third trimester (principal); Z3A.36 36 weeks gestation of pregnancy
CPT/HCPCS: 87081; 87653

== ENCOUNTER 2024-01-20 12:05 | Outpatient (CLI) | payer OTHER, SELFPAY ==
--- OUTSIDE RECORDS SUMMARY | 2024-01-20 12:07 | XMS_ITS ---
Author Organization [facility] Address [address] [place] [address] Care Team Providers Care Spot Billing Clerk Name Role Phone Unavailable Unavailable Unavailable Surgery Details Not on file Complications Check Surgery Details section. Procedure Estimated Blood Loss Check Surgery Details section. Procedure Findings Check Surgery Details section. Procedure Specimens Taken Check Surgery Details section.
--- OUTSIDE RECORDS SUMMARY | 2024-01-20 12:07 | XMS_ITS | Clinical Summary ---
Author Organization [facility] Address [place], [place] [address] Care Team Providers Care Consultant Intern Name Role Phone Molly Celeste Primary Care Provider +1- [phone] Allergies No known active allergies Medications Medication [...] Comments Blood Pressure 102/78 01/22/2022 9:34 AM SUSTAINABLE DESIGN CONSULTANT Pulse 72 01/22/2022 9:34 AM SUSTAINABLE DESIGN CONSULTANT Temperature 37.1 C (98.7 F) 08/30/2013 9:17 AM CDT Respiratory Rate 16 12/10/2018 8:35 AM CDT Oxygen Saturation - - Inhaled Oxygen Concentration - - Weight 68 kg (150 lb) 01/22/2022 9:34 AM SUSTAINABLE DESIGN CONSULTANT Height 170.2 cm (5' 7) 01/22/2022 9:34 AM SUSTAINABLE DESIGN CONSULTANT Body Mass Index 23.49 01/22/2022 9:34 AM SUSTAINABLE DESIGN CONSULTANT Plan of Treatment Health Maintenance Due Date [...] Procedure Name Priority Date/Time Associated Diagnosis Comments ONION TIER THIN PREP PAP SCREEN IMAGED Routine 02/04/2023 7:55 AM SUSTAINABLE DESIGN CONSULTANT from Last 3 Months or Most Recently Relevant to Health Maintenance Results * ONION TIER THIN PREP PAP SCREEN IMAGED (02/04/2023 7:55 AM SUSTAINABLE DESIGN CONSULTANT) Case Report Gynecologic Cytology Report Case: [id number] Authorizing Provider: Shelly Lugo MD Collected: 02/04/2023 0755 Ordering Location: [facility] Received: 02/05/2023 1241 First Screen: Eveyln Estrella Specimen: ONION TIER ThinPrep Vial Screening, Cervical/Vaginal 02/12/2023 4:46 PM SUSTAINABLE DESIGN CONSULTANT [facility] LABORATORY-C ENTRAL LABORATORY INTERPRETATION/ RESULT NEGATIVE FOR INTRAEPITHELIAL LESION OR MALIGNANCY (NIL) (none) 02/12/2023 4:46 PM SUSTAINABLE DESIGN CONSULTANT [facility] LABORATORY-C ENTRAL LABORATORY IMEN ADEQUACY Satisfactory for evaluation Endocervical component present 02/12/2023 4:46 PM SUSTAINABLE DESIGN CONSULTANT [facility] LABORATORY-C ENTRAL LABORATORY HPV REQUEST HPV not requested 2022 4:46 PM SUSTAINABLE DESIGN CONSULTANT [facility] ENTRAL LABORATORY Date of LMP 02/12/2023 4:46 PM SUSTAINABLE DESIGN CONSULTANT [facility] ENTRAL LABORATORY Comment:unknown Last Pap Date 02/12/2023 4:46 PM SUSTAINABLE DESIGN CONSULTANT [facility] ENTRAL LABORATORY Comment:unknown Last Pap Result NIL 4:46 PM SUSTAINABLE DESIGN CONSULTANT [facility] ENTRAL LABORATORY Abnormal Pap or Tom[place] Bx in last 5 years No 02/12/2023 4:46 PM SUSTAINABLE DESIGN CONSULTANT [facility] ENTRIN LABORATORY Tomales Bx Done Today No 02/12/2023 4:46 PM SUSTAINABLE DESIGN CONSULTANT [facility] ENTRIN LABORATORY Additional Information 02/12/2023 4:46 PM SUSTAINABLE DESIGN CONSULTANT [facility] ENTRIN LABORATORY Comment: Interpreted at [facility] Laboratory - [address] [facility] [address], [place] [address] Automated Review Successful 02/12/2023 4:46 PM SUSTAINABLE DESIGN CONSULTANT [facility] ENTRIN LABORATORY Comment:Specimen processed s uccessfully by automated wall attendant device, ThinPrep Imaging System, [employer] Note The pap test is a screening technique, not a diagnostic procedure. It is used primarily to screen for squamous cancers and precursor lesions. Published studies have shown that it is subject to both false negative and false positive results. The pap test should not be used as the sole means to diagnose or exclude pre-malignant and malignant lesions. 02/12/2023 4:46 PM SUSTAINABLE DESIGN CONSULTANT [facility] LABORATORY Other (Cervical/Vagina l) 02/04/2023 7:55 AM SUSTAINABLE DESIGN CONSULTANT 02/05/2023 12:41 PM SUSTAINABLE DESIGN CONSULTANT Shelly Lugo MD PATHOLOGY/[facility] LABORATORY [address] [place] [address], [place] from Last 3 Months or Most Recently Relevant to Health Maintenance Care Teams Consultant Intern Relationship Specialty Start Date End Date Molly Celeste PA PCP - General Physician Song And Dance Performer 05/04/21
--- OUTSIDE RECORDS SUMMARY | 2024-01-20 12:07 | XMS_ITS | Clinical Summary ---
Author Organization [facility] Address [address] [place] [address] Care Team Providers Care Onsite Case Manager Name Role Phone Unavailable Primary Care Provider Unavailabl e Source Comments Patient records contain information from all sites at [facility]. For routine questions regarding patient records, call [phone] during business hours, M-F 8:00 AM - 5:00 PM Central Time. Record requests for emergency care only can be directed to [phone] at any time.[facility] Allergies No known active allergies Medications no115/iron/folic [...] In the past 12 months has e [employer], gas, oil, or water [employer] threatened to shut off services in your [...] 06/18/1999 05/21/1999 Depression Screening (Annual PHQ-2) 03/02/2023 Cervical/Vaginal Cancer Screening 02/04/2026 02/04/2023 DTaP,Tdap,and Td [...] on patient's age to complete this topic RSV vaccine - (32-36 weeks) or 60+ years (No Doses Required) Completed Insurance [facility] [facility] [employer] EMPLOYEE
--- OUTSIDE RECORDS SUMMARY | 2024-01-20 12:07 | XMS_ITS | Referral Summary ---
Author Organization [facility] Address [address] [place] [address] Care Team Providers Care Limerock Tower Loader Name Role Phone Unavailable Primary Care Provider Unavailabl e Source Comments Patient records contain information from all sites at [facility]. For routine questions regarding patient records, call [phone] during business hours, M-F 8:00 AM - 5:00 PM Central Time. Record requests for emergency care only can be directed to [phone] at any time.[facility] Allergies No known active allergies Medications no115/iron/folic [...] = 0.6 oz pur e alcohol) rare [facility] Utilities Answer Date Recorded In the past 12 months has e [employer], gas, oil, or water company threatened to [...] your living situation today? I have a [facility] place to live 07/12/2023 Education Answer [...] - Plan of Treatment Not on file Insurance [facility] [employer] [facility] EMPLOYEE
--- NOTE | 2024-01-20 12:15 | CRLHL7_ITS ---
For Patients: As a result of the Century Cures Act, medical imaging exams and procedure reports are released immediately into your electronic medical record. You may view this report before your referring provider. If you have questions, please contact your health care provider. HISTORY: Abnormal finding on screening. COMPARISON: Biophysical profile score and Ob ultrasound report from 12/07/2023 TECHNIQUE: Ultrasound examination of the is performed with transabdominal technique. FINDINGS: A single intrauterine gestation is seen in cephalic presentation with regular cardiac activity at 137 beats per minute. The placenta is posterior and is free of the cervical os. The placental grade is 3 and the amniotic fluid volume is normal. Single deepest vertical pocket: 6.7 cm, slightly increased compared to the previous study where it measured 5.3 cm. BPD: 9.4 cm 38 weeks 3 days HC: 34.0 cm 39 weeks 1 day AC: 35.3 cm 39 weeks 1 day. Eighty-eighth percentile FL: 7.3 cm 37 weeks 3 days The estimated age by ultrasound is 38 weeks 4 days, with an estimated date of delivery of 01/30/2024. This correlates well with the clinical age of 38 weeks 2 days, and is more consistent than the measurements from the previous ultrasound which had an estimated date of delivery of 01/19/2024. The ultrasound ratios are normal. The estimated weight of 3600 grams is at the 75th percentile based on the clinical dates. The biophysical profile score is 8/8, with no points off. IMPRESSION: 1. Single intrauterine gestation in cephalic presentation with regular cardiac activity. 2. Estimated gestational age is 38 weeks 4 days. 3. There has been appropriate interval growth compared to the clinical dates, and is more appropriate than the previous ultrasound measurements. 4. Estimated weight of 3600 grams is at the 75th percentile based on the clinical dates. 5. Biophysical profile score is 8/8, with no points off. Dictated by Mateusz Rowell MD @ 01/21/2024 10:21:55 AM (Electronically Signed)
== END 2024-01-20 12:06 | disposition home or self-care (01) ==
LOC: US 12:06
PROVIDERS: PCP Family Medicine; Visit Provider Obstetrics & Gynecology
DX: O28.3 Abnormal ultrasonic finding on antenatal screening of mother (principal); Z3A.38 38 weeks gestation of pregnancy
CPT/HCPCS: 76816; 76819

== ENCOUNTER 2024-01-26 09:08 | Outpatient (CLI) | payer OTHER, SELFPAY ==
--- OUTSIDE RECORDS SUMMARY | 2024-01-26 09:10 | XMS_ITS | Clinical Summary ---
Author Organization [facility] Address [address] [place] [address] Care Team Providers Care Nursery Manager Name Role Phone Unavailable Primary Care Provider Unavailabl e Source Comments Patient records contain information from all sites at [facility]. For routine questions regarding patient records, call [phone] during business hours, M-F 8:00 AM - 5:00 PM Central Time. Record requests for emergency care only can be directed to [phone] at any time.[facility] Allergies No known active allergies Medications [...] oz pur e alcohol) rare [facility] Utilities Answer Date Recorded In the past 12 months has e [employer], gas, oil, or water [employer] threatened to shut off services in your [...] 60+ years (No Doses Required) Completed Insurance [employer] EMPLOYEE
--- OUTSIDE RECORDS SUMMARY | 2024-01-26 09:11 | XMS_ITS | Referral Summary ---
Author Organization [facility] Address [address] [place] [address] Care Team Providers Care Spray Machine Operator Name Role Phone Unavailable Primary Care Provider Unavailabl e Source Comments Patient records contain information from all sites at [facility]. For routine questions regarding patient records, call [phone] during business hours, M-F 8:00 AM - 5:00 PM Central Time. Record requests for emergency care only can be directed to [phone] at any time.[facility] Allergies No known active allergies Medications no115/iron/folic [...] = 0.6 oz pur e alcohol) rare [facility] Utilities Answer Date Recorded In the past 12 months has e [employer], gas, oil, or water company threatened to [...] your living situation today? I have a [facility] place to live 07/12/2023 Education Answer [...] Plan of Treatment Not on file Insurance [employer] EMPLOYEE
--- OUTSIDE RECORDS SUMMARY | 2024-01-26 09:11 | XMS_ITS ---
Author Organization [facility] Address [address] [place] [address] Care Team Providers Care Plate Stacker Hand Name Role Phone Unavailable Unavailable Unavailable Surgery Details Not on file Complications Check Surgery Details section. Procedure Estimated Blood Loss Check Surgery Details section. Procedure Findings Check Surgery Details section. Procedure Specimens Taken Check Surgery Details section.
--- OUTSIDE RECORDS SUMMARY | 2024-01-26 09:11 | XMS_ITS | Clinical Summary ---
Author Organization [facility] Address [place], [place] [address] Care Team Providers Care Exercise Instructor Name Role Phone Molly Celeste Primary Care Provider +1- [phone] Allergies No known active allergies Medications Medication [...] Comments Blood Pressure 102/78 01/22/2022 9:34 AM DEFLASH AND WASH OPERATOR Pulse 72 01/22/2022 9:34 AM DEFLASH AND WASH OPERATOR Temperature 37.1 C (98.7 F) 08/30/2013 9:17 AM CDT Respiratory Rate 16 12/10/2018 8:35 AM CDT Oxygen Saturation - - Inhaled Oxygen Concentration - - Weight 68 kg (150 lb) 01/22/2022 9:34 AM DEFLASH AND WASH OPERATOR Height 170.2 cm (5' 7) 01/22/2022 9:34 AM DEFLASH AND WASH OPERATOR Body Mass Index 23.49 01/22/2022 9:34 AM DEFLASH AND WASH OPERATOR Plan of Treatment Health Maintenance Due [...] Procedure Name Priority Date/Time Associated Diagnosis Comments INFORMATION SERVICES CONSULTANT THIN PREP PAP SCREEN IMAGED Routine 02/04/2023 7:55 AM DEFLASH AND WASH OPERATOR from Last 3 Months or Most Recently Relevant to Health Maintenance Results * INFORMATION SERVICES CONSULTANT THIN PREP PAP SCREEN IMAGED (02/04/2023 7:55 AM DEFLASH AND WASH OPERATOR) Case Report Gynecologic Cytology Report Case: [id number] Authorizing Provider: Shelly Lugo MD Collected: 02/04/2023 0755 Ordering Location: [facility] Received: 02/05/2023 1241 First Screen: Evelyn Estrella Specimen: INFORMATION SERVICES CONSULTANT ThinPrep Vial Screening, Cervical/Vaginal 02/12/2023 4:46 PM DEFLASH AND WASH OPERATOR [facility] INTERPRETATION/ RESULT NEGATIVE FOR INTRAEPITHELIAL LESION OR MALIGNANCY (NIL) (none) 02/12/2023 4:46 PM DEFLASH AND WASH OPERATOR [facility] IMEN ADEQUACY Satisfactory for evaluation Endocervical component present 02/12/2023 4:46 PM DEFLASH AND WASH OPERATOR [facility] HPV REQUEST HPV not requested 2022 4:46 PM DEFLASH AND WASH OPERATOR [facility] Date of LMP 02/12/2023 4:46 PM DEFLASH AND WASH OPERATOR [facility] Comment:unknown Last Pap Date 02/12/2023 4:46 PM DEFLASH AND WASH OPERATOR [facility] Comment:unknown Last Pap Result NIL 4:46 PM DEFLASH AND WASH OPERATOR [facility] Abnormal Pap or [place] Bx in last 5 years No 02/12/2023 4:46 PM DEFLASH AND WASH OPERATOR [facility] [place] Bx Done Today No 02/12/2023 4:46 PM DEFLASH AND WASH OPERATOR [facility] Additional Information 02/12/2023 4:46 PM DEFLASH AND WASH OPERATOR [facility] Comment: Interpreted at [facility] - [address] [facility] [address], [place] [address] Automated Review Successful 02/12/2023 4:46 PM DEFLASH AND WASH OPERATOR [facility] Comment:Specimen processed s uccessfully by automated airline hostess device, ThinPrep Imaging System, [employer] Note The pap test is a screening technique, not a diagnostic procedure. It is used primarily to screen for squamous cancers and precursor lesions. Published studies have shown that it is subject to both false negative and false positive results. The pap test should not be used as the sole means to diagnose or exclude pre-malignant and malignant lesions. 02/12/2023 4:46 PM DEFLASH AND WASH OPERATOR [facility] Other (Cervical/Vagina l) 02/04/2023 7:55 AM DEFLASH AND WASH OPERATOR 02/05/2023 12:41 PM DEFLASH AND WASH OPERATOR Shelly Lugo MD PATHOLOGY/CYTOLO GY [facility] [address] [place] [address], [place] from Last 3 Months or Most Recently Relevant to Health Maintenance Care Teams Exercise Instructor Relationship Specialty Start Date End Date Molly Celeste PA PCP - General Physician Fisher [employer] 05/04/21
--- NOTE | 2024-01-26 09:15 | CRLHL7_ITS ---
For Patients: As a result of the Century Cures Act, medical imaging exams and procedure reports are released immediately into your electronic medical record. You may view this report before your referring provider. If you have questions, please contact your health care provider. INDICATION: Prior nuchal fold thickening COMPARISON: 01/20/2024 TECHNIQUE: Real time mclain scale imaging of the fetus was performed. Without non-stress testing. FINDINGS: Sonographic imaging demonstrates a single living intrauterine gestation. Fetus demonstrates a regular cardiac rate of 167 beats per minute. Fetus has a vertex position. The amniotic fluid volume appears normal and there is a single deepest pocket measurement of 6.6 cm. The fetus was active. Absent breathing movements. There was normal flexion and extension of the trunk and extremities. IMPRESSION: Biophysical profile 08/07. Dictated by Giuseppe Quintanilla MD @ 01/26/2024 11:51:25 AM (Electronically Signed)
== END 2024-01-26 09:09 | disposition home or self-care (01) ==
LOC: US 09:09
PROVIDERS: PCP Family Medicine; Visit Provider Obstetrics & Gynecology
DX: O28.3 Abnormal ultrasonic finding on antenatal screening of mother (principal)
CPT/HCPCS: 76819

== ENCOUNTER 2024-02-02 13:53 | Outpatient (CLI) | payer OTHER, SELFPAY ==
--- OUTSIDE RECORDS SUMMARY | 2024-02-02 13:55 | XMS_ITS | Clinical Summary ---
Author Organization [facility] Address [place], [place] [address] Care Team Providers Care Network Services Project Manager Name Role Phone Molly Celeste Primary Care Provider +1- [phone] Allergies No known active allergies Medications Medication [...] Comments Blood Pressure 102/78 01/22/2022 9:34 AM OTTER TRAWLER [place] Pulse 72 01/22/2022 9:34 AM OTTER TRAWLER [place] Temperature 37.1 C (98.7 F) 08/30/2013 9:17 AM CDT Respiratory Rate 16 12/10/2018 8:35 AM CDT Oxygen Saturation - - Inhaled Oxygen Concentration - - Weight 68 kg (150 lb) 01/22/2022 9:34 AM OTTER TRAWLER [place] Height 170.2 cm (5' 7) 01/22/2022 9:34 AM OTTER TRAWLER [place] Body Mass Index 23.49 01/22/2022 9:34 AM OTTER TRAWLER [place] Plan of Treatment Health Maintenance Due Date [...] Procedure Name Priority Date/Time Associated Diagnosis Comments ELECTROCARDIOGRAPHIC TECHNICIAN THIN PREP PAP SCREEN IMAGED Routine 02/04/2023 7:55 AM OTTER TRAWLER [place] from Last 3 Months or Most Recently Relevant to Health Maintenance Results * ELECTROCARDIOGRAPHIC TECHNICIAN THIN PREP PAP SCREEN IMAGED (02/04/2023 7:55 AM OTTER TRAWLER [place]) Case Report Gynecologic Cytology Report Case: [id number] Authorizing Provider: Shelly Lugo MD Collected: 02/04/2023 0755 Ordering Location: [facility] Received: 02/05/2023 1241 First Screen: Evelyn Estrella Specimen: ELECTROCARDIOGRAPHIC TECHNICIAN ThinPrep Vial Screening, Cervical/Vaginal 02/12/2023 4:46 PM OTTER TRAWLER [place] [facility] ENTRAL LABORATORY INTERPRETATION/ RESULT NEGATIVE FOR INTRAEPITHELIAL LESION OR MALIGNANCY (NIL) (none) 02/12/2023 4:46 PM OTTER TRAWLER [place] [facility] LABORAT[facility] IMEN ADEQUACY Satisfactory for evaluation Endocervical component present 02/12/2023 4:46 PM OTTER TRAWLER [place] [facility] LAB[facility] HPV REQUEST HPV not requested 2022 4:46 PM OTTER TRAWLER [place] [facility] EN[facility] Date of LMP 02/12/2023 4:46 PM OTTER TRAWLER [place] [facility] EN[facility] Comment:unknown Last Pap Date 02/12/2023 4:46 PM OTTER TRAWLER [place] [facility] EN[facility] Comment:unknown Last Pap Result NIL 4:46 PM OTTER TRAWLER [place] [facility] EN[facility] Abnormal Pap or [place] Bx in last 5 years No 02/12/2023 4:46 PM OTTER TRAWLER [place] [facility] [place] Bx Done Today No 02/12/2023 4:46 PM OTTER TRAWLER [place] [facility] Additional Information 02/12/2023 4:46 PM OTTER TRAWLER [place] [facility] Comment: Interpreted at [facility] - [address] [facility] [address], [place] [address] Automated Review Successful 02/12/2023 4:46 PM OTTER TRAWLER [place] [facility] Comment:Specimen processed s uccessfully by automated greenskeeper supervisor device, ThinPrep Imaging System, [employer] Note The pap test is a screening technique, not a diagnostic procedure. It is used primarily to screen for squamous cancers and precursor lesions. Published studies have shown that it is subject to both false negative and false positive results. The pap test should not be used as the sole means to diagnose or exclude pre-malignant and malignant lesions. 02/12/2023 4:46 PM OTTER TRAWLER [place] [facility] Other (Cervical/Vagina l) 02/04/2023 7:55 AM OTTER TRAWLER [place] 02/05/2023 12:41 PM OTTER TRAWLER [place] Shelly Lugo MD PATHOLOGY/CYTOLO GY [facility] [address] [place] [address], [place] from Last 3 Months or Most Recently Relevant to Health Maintenance Care Teams Network Services Project Manager Relationship Specialty Start Date End Date Molly Celeste PA PCP - General Physician Marketing Manager Health Communications 05/04/21
--- OUTSIDE RECORDS SUMMARY | 2024-02-02 13:55 | XMS_ITS | Referral Summary ---
Author Organization [facility] Address [address] [place] [address] Care Team Providers Care Telephone Cleaner Name Role Phone Unavailable Primary Care Provider Unavailabl e Source Comments Patient records contain information from all sites at [facility]. For routine questions regarding patient records, call [phone] during business hours, M-F 8:00 AM - 5:00 PM Central Time. Record requests for emergency care only can be directed to [phone] at any time.[facility] Allergies No known active allergies Medications no115/iron/folic [...] = 0.6 oz pur e alcohol) rare [facility] Utilities Answer Date Recorded In the past 12 months has e [employer], gas, oil, or water company threatened to [...] your living situation today? I have a [facility] place to live 07/12/2023 Education Answer [...] Plan of Treatment Not on file Insurance [facility] [employer] EMPLOYEE
--- OUTSIDE RECORDS SUMMARY | 2024-02-02 13:55 | XMS_ITS ---
Author Organization [facility] Address [address] [place] [address] Care Team Providers Care Blueprint Processor Name Role Phone Unavailable Unavailable Unavailable Surgery Details Not on file Complications Check Surgery Details section. Procedure Estimated Blood Loss Check Surgery Details section. Procedure Findings Check Surgery Details section. Procedure Specimens Taken Check Surgery Details section.
--- OUTSIDE RECORDS SUMMARY | 2024-02-02 13:55 | XMS_ITS | Clinical Summary ---
Author Organization [facility] Address [address] [place] [address] Care Team Providers Care Raw Stock Drier Tender Name Role Phone Unavailable Primary Care Provider Unavailabl e Source Comments Patient records contain information from all sites at [facility]. For routine questions regarding patient records, call [phone] during business hours, M-F 8:00 AM - 5:00 PM Central Time. Record requests for emergency care only can be directed to [phone] at any time.[facility] Allergies No known active allergies Medications [...] oz pur e alcohol) rare [facility] Utilities Answer Date Recorded In the past 12 months has e [employer], gas, oil, or water [employer] threatened to shut off services in your [...] 60+ years (No Doses Required) Completed Insurance [employer] EMPLOYEE
--- NOTE | 2024-02-02 14:00 | CRLHL7_ITS ---
For Patients: As a result of the Century Cures Act, medical imaging exams and procedure reports are released immediately into your electronic medical record. You may view this report before your referring provider. If you have questions, please contact your health care provider. INDICATION: Abnormal finding of ultrasound, thickened nuchal fold. COMPARISON: OB ultrasound 01/26/2024. TECHNIQUE: Ultrasound OB pelvis biophysical profile. Real time mclain scale imaging of the fetus was performed without non-stress testing. FINDINGS: Sonographic imaging demonstrates a single living intrauterine gestation. The fetus demonstrates a regular cardiac rate of 133 beats per minute. The fetus has a cephalic orientation. The placenta lies posteriorly. Single deepest pocket measures 7.4 cm. breathing movements: 2/2 Gross body movements: 2/2 tone: 2/2 Amniotic fluid volume: 2/2 Total: 10/07 IMPRESSION: Normal biophysical profile score 8 out of 8. Dictated by Teresa Jeffery MD @ 02/03/2024 2:50:58 AM (Electronically Signed)
== END 2024-02-02 13:54 | disposition home or self-care (01) ==
LOC: US 13:54
PROVIDERS: PCP Family Medicine; Visit Provider Obstetrics & Gynecology
DX: O28.3 Abnormal ultrasonic finding on antenatal screening of mother (principal)
CPT/HCPCS: 76819

== ENCOUNTER 2024-02-07 17:12 | Inpatient (IN) | payer OTHER, SELFPAY ==
[2024-02-07] VITALS (12 sets, daily range): BP systolic 117–140; BP diastolic 56–75; PULSE 83–95; RESP 16–19; TEMP 36.5–36.9; O2SAT 100
--- OUTSIDE RECORDS SUMMARY | 2024-02-07 16:56 | XMS_ITS ---
Author Organization [facility] Address [address] [place] [address] Care Team Providers Care Online Retailer Name Role Phone Unavailable Unavailable Unavailable Surgery Details Not on file Complications Check Surgery Details section. Procedure Estimated Blood Loss Check Surgery Details section. Procedure Findings Check Surgery Details section. Procedure Specimens Taken Check Surgery Details section.
--- OUTSIDE RECORDS SUMMARY | 2024-02-07 16:56 | XMS_ITS | Clinical Summary ---
Author Organization [facility] Address [place], [place] [address] Care Team Providers Care Wastewater Treatment Plant Chemist Name Role Phone Molly Celeste Primary Care Provider +1- [phone] Allergies No known active allergies Medications norgestimate-ethin yl estradioL (Tri-Sprintec) 0.18/0.215/0.25 mg-35 mcg (28) tabletIndications: Oral contraceptive use Take 1 Tablet by mouth once daily. 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 Not on file Not on file Not on file Obstetrics History Last Filed Vital Signs Vital Sign Reading Time Taken Comments Blood Pressure 102/78 01/22/2022 9:34 AM ANTIQUER Pulse 72 01/22/2022 9:34 AM ANTIQUER Temperature 37.1 C (98.7 F) 08/30/2013 9:17 AM CDT Respiratory Rate 16 12/10/2018 8:35 AM CDT Oxygen Saturation - - Inhaled Oxygen Concentration - - Weight 68 kg (150 lb) 01/22/2022 9:34 AM ANTIQUER Height 170.2 cm (5' 7) 01/22/2022 9:34 AM ANTIQUER Body Mass Index 23.49 01/22/2022 9:34 AM ANTIQUER Plan of Treatment Health Maintenance Due Date [...] Procedure Name Priority Date/Time Associated Diagnosis Comments MEDICAL SURGICAL TECH THIN PREP PAP SCREEN IMAGED Routine 02/04/2023 7:55 AM ANTIQUER from Last 3 Months or Most Recently Relevant to Health Maintenance Results * MEDICAL SURGICAL TECH THIN PREP PAP SCREEN IMAGED (02/04/2023 7:55 AM ANTIQUER) Case Report Gynecologic Cytology Report Case: [id number] Authorizing Provider: Shelly Lugo MD Collected: 02/04/2023 0755 Ordering Location: [facility] Received: 02/05/2023 1241 First Screen: Evelyn Estrella Specimen: MEDICAL SURGICAL TECH ThinPrep Vial Screening, Cervical/Vaginal 02/12/2023 4:46 PM ANTIQUER [facility]AL LABORATORY INTERPRETATION/ RESULT NEGATIVE FOR INTRAEPITHELIAL LESION OR MALIGNANCY (NIL) (none) 02/12/2023 4:46 PM [facility]ER [facility] IMEN ADEQUACY Satisfactory for evaluation Endocervical component present 02/12/2023 4:46 PM ANTIQUER [facility] HPV REQUEST HPV not requested 2022 4:46 PM ANTIQUER [facility] Date of LMP 02/12/2023 4:46 PM ANTIQUER [facility] Comment:unknown Last Pap Date 02/12/2023 4:46 PM ANTIQUER [facility] Comment:unknown Last Pap Result NIL 4:46 PM ANTIQUER [facility] Abnormal Pap or [place] Bx in last 5 years No 02/12/2023 4:46 PM ANTIQUER [facility] [place] Bx Done Today No 02/12/2023 4:46 PM ANTIQUER [facility] Additional Information 02/12/2023 4:46 PM ANTIQUER [facility] Comment: Interpreted at [facility] - [address], [place] [address] Automated Review Successful 02/12/2023 4:46 PM ANTIQUER [facility] Comment:Specimen processed s uccessfully by automated crime lab analyst device, ThinPrep Imaging System, [employer] Note The pap test is a screening technique, not a diagnostic procedure. It is used primarily to screen for squamous cancers and precursor lesions. Published studies have shown that it is subject to both false negative and false positive results. The pap test should not be used as the sole means to diagnose or exclude pre-malignant and malignant lesions. 02/12/2023 4:46 PM ANTIQUER [facility] Other (Cervical/Vagina l) 02/04/2023 7:55 AM ANTIQUER 02/05/2023 12:41 PM ANTIQUER us Shelly Lugo MD PATHOLOGY/CYTOLOGY Final Result [facility] [address] [place] [address], [place] from Last 3 Months or Most Recently Relevant to Health Maintenance Care Teams Wastewater Treatment Plant Chemist Relationship Specialty Start Date End Date Molly Celeste PA PCP - General Physician Psychiatric Clinical Nurse Specialist 05/04/21
--- OUTSIDE RECORDS SUMMARY | 2024-02-07 16:56 | XMS_ITS | Referral Summary ---
Author Organization [facility] Address [address] [place] [id number] Care Team Providers Care Pointer Helper Name Role Phone Unavailable Primary Care Provider Unavailabl e Source Comments Patient records contain information from all sites at [facility]. For routine questions regarding patient records, call [phone] during business hours, M-F 8:00 AM - 5:00 PM Central Time. Record requests for emergency care only can be directed to [phone] at any time.[facility] Allergies No known active allergies Medications [...] oz pur e alcohol) rare [facility] Utilities Answer Date Recorded In the past 12 months has e [employer], gas, oil, or water company threatened to [...] your living situation today? I have a [facility] place to live 07/12/2023 Education Answer [...] Plan of Treatment Not on file Insurance [employer]
--- NOTE | 2024-02-07 17:35 | P.LDBA_ITS ---
Subjective History of Present Illness Date Seen: 02/07/24 Narrative: Julieta is being admitted to Labor and Delivery for active labor. Dr. Saloni Whiteside was in the OR at the time of her arrival so assumed care of her until she was available. She is a 28 year old at 40.6 weeks gestation. Her full history and physical was dictated by Dr. Frey on 01/12/24. Please see this for details. Julieta states that she has been yelena regularly since last night but about an hour before arrival they became much more intense and they decided to come in. On arrival she was very uncomfortable and tearful. She was scared and comfort and reassurance was given. She is appreciating good movement and denies leaking fluid or bleeding. On SVE she was found to be 7-8cm/90%/0. She is now coping well wit contractions once again and was encouraged to change positions to promote physiologic labor and . Specific Issues/Plans : Brad H&P Dr. Frey 01/12/2024 # Possible thickened NT on viability u/s. -[id number] collected: Negative for autosomal and sex chromosome aneuploidies, consistent with female -Referral placed to [facility] for follow up -Thickened NT again noted at [facility] at 11 weeks, 4 mm -Level 2 US 09/11/23: normal anatomy, posterior placenta without previa, EFW 86%, AC 61% -Normal echo at 23 weeks -MFM at [facility] recommended twice weekly testing with alternating NST and BPP beginning 32 weeks, given possible slight increased risk of with normal testing in setting of thickened NT. This is outside of [facility] guidelines, which recommend no further testing in this particular situation. In the presence of normal testing, with the resolution of thickened nuchal fold, it appears that there may be increased risk of stillbirth, but this may be more of a concern if the nuchal translucency is large or persists. There is no medical society that recommends testing in this scenario. Discussed with patient. -US for EFW and BPP at 32 weeks -Begin weekly BPP 38 weeks # Elevated 1 hr GTT = 188. 3 hr GTT: 1 of 4 values elevated - no diabetes Ultrasounds: 06/30/2023: 9 weeks, 1 day by CRL with MADAI 02/01/2024. 09/11/2023: Level 2. Cephalic, normal anatomy, normal fluid, posterior placenta without previa, EFW 86%, AC 61% 10/05/2023: Normal echocardiogram 12/07/23: cephalic, SDP of 5.3 cm, EFW 78th %. BPD >97%. HC 87%. AC 8%, FL 41%, BPP 8/8 01/21/24: EFW 3600 g= 75%, AC 88%. Cephalic. BPP /. SDP 6.7. RSV: 12/07/23 Tdap: 11/24/23 Flu: completed with employer Covid: completed with employer GBS negative on 01/03 Last pap: Negative for intraepithelial lesion, no HPV testing 02/04/2023 OB - Problem Based A/P Additional Plan (1) Pain during labor: Status: Acute (2) Nuchal fold thickening on ultrasound: Status: Acute Plan ASSESSMENT:? at 40.6 weeks gestation? GBS negative? complicated by: thickened nuchal translucency with negative NIPT Labor type: spontaneous labor Blood type:?A+ ?? PLAN:? 1. Candidate for analgesia of choice. Planning unmedicated but open to epidural analgesia 2. No HIV, varicella titer, or Rubella titer in records. Will collect with labs now.? 3. Anticipate ? 4. Expectant management at this time.? 5. IV not needed at this time. Consider if condition changes. Can consider intermittent auscultation after reactive tracing. ? Delivery/Labor/Induction Plan Plan: expectant management OB Result Labs Blood Type: A (+) positive RPR/VDLR: nonreactive GBS Status: negative OB Exam Detailed Labor and Delivery Exam Dilation (cm): 7 Effacement (%): 90 Cervix position: mid Consistency: soft Fetus (Single) Station: 0 Amniotic Membrane Status: intact Heart Rate Baseline: 135 Monitor Accelerations: Present Monitor Decelerations: None Stain Wiper Variability: Moderate (6-25)
[2024-02-07 18:41] LABS: Basophils Percent Auto 0.2 % (0.0-3.0); Eosinophils Percent Auto 0.6 % (0.0-7.0); Hematocrit 35.5 % (33.0-51.0); Hemoglobin* 11.8 gm/dL (12.0-16.0); Immature Granulocytes Pct Auto 0.5 %; Lymphocytes Percent Auto 10.5 % (20-44); Mean Corpuscular HGB Conc 33 gm/dL (32-36); Mean Corpuscular Hemoglobin 31 pg (26-34); Mean Corpuscular Volume 94 fL (80-100); Monocytes Percent Auto 4.3 % (0.0-11.0); Neutrophils Percent Auto 83.9 % (42.0-72.0); Platelet Count* 209 K/uL (140-440); RDW Coefficient of Variation % 13.2 % (11.5-15.5); Red Blood Count 3.79 m/uL (4.00-5.20); White Blood Count* 12.66 K/uL (4.50-11.00)
[2024-02-07 18:48] LABS: Slide Review Reflex No
[2024-02-07] MEDS: OXYTOCIN 30 unit/500 ML in NS 30 UNIT/500 ML BAG 300 UNIT IVPB (21:33)
[2024-02-07] MEDS: LIDOCAINE 1 % PF 30 ML INJECTION ×2 (21:34→21:45)
--- NOTE | 2024-02-07 23:21 | W.PM.VAGDEL1 ---
Procedure Delivery date: 02/07/24 Procedure Done: [employer] Procedure Details: The patient is a 28 year-old -0-1-0 woman admitted on 02/07/2024 at 40 Weeks, 6 Days gestation for active labor.? Cervical exam on admission was 7-8cm/90%/0 membranes intact in vertex presentation.? Contractions were regular.? heart rate demonstrated baseline 135 bpm with moderate variability, positive accelerations, no decelerations; a category 1 tracing.? Labor onset:? 11:00 p.m. on 02/06/2024 SROM occurred at 6:53 p.m. with meconium-stained fluid. ? Labor Analgesia:? None ? Pitocin:? No ? Complete:? 7:15 p.m. ? Pushing:? 7:15 p.m. ? heart tones during second stage were notable only for terminal bradycardia in the 4 minutes prior to delivery; the perineum was injected with lidocaine in anticipation of episiotomy, but this was not ultimately performed ? At 9:09 p.m. a viable female delivered in vertex OA presentation via spontaneous vaginal delivery.? Infant was placed on maternal abdomen.? Cord was clamped and cut immediately given decreased tone.? Nose and mouth were bulb suctioned.? Infant weight pending.? 7 at 1 minute and 8 at 5 minutes.? Shoulder dystocia: No.? Nuchal cord: Now. ? Placenta delivered spontaneously and complete at 9:27 p.m. with a 3 vessel cord. ? Mother and infant were stable after delivery. ? Lacerations:? Right labial and complicated second-degree vaginal and perineal laceration, extending up the right vaginal sidewall. These were infiltrated with approximately 20 mL of 1% lidocaine. The labial laceration was closed with 3-0 Vicryl. The perineal and vaginal lacerations were closed with 2 0 Vicryl. Vaginal packing was then placed due to some oozing along the right vaginal sidewall and hymeneal ring. ? Blood loss: 500 mL. Blood loss measurement type: QBL ? Sponge and needles counts are correct.
[2024-02-08] MEDS: ACETAMINOPHEN 500 MG TABLET 1000 MG PO ×2 (00:01→10:28)
[2024-02-08 00:30] VITALS: BMI 27.3
[2024-02-08] MEDS: IBUPROFEN 600 MG TABLET PO ×4 (01:04→22:39)
[2024-02-08 03:56] LABS: Hepatitis B Surface Antigen* Negative (Negative)
[2024-02-08 04:05] LABS: HIV 1/2/P24 Combo Screen* Negative (Negative)
[2024-02-08 04:13] LABS: Hepatitis C Virus Antibody* Negative (Negative)
[2024-02-08 04:18] VITALS: BP 128/71; PULSE 83; RESP 16; TEMP 36.8
[2024-02-08 04:58] LABS: Hepatitis B Surface Antibody* Positive (Negative)
[2024-02-08 06:43] LABS: Hemoglobin* 9.7 gm/dL (12.0-16.0)
[2024-02-08 08:50] VITALS: BP 121/68; PULSE 84; RESP 16; TEMP 36.8; O2SAT 96
--- NOTE | 2024-02-08 14:54 | P.OBPN_ITS ---
OB - PN:Subj Subjective Date Seen: 02/08/24 Narrative: Julieta is a 28 year old who was admitted for active labor and proceeded to have a vaginal with a right labial and a vaginal/2nd degree perineal laceration that was repaired.The patient feels well.? The pain is well contr olled with current medications.? She has no new complaints.? Urinary output is adequate and she is voiding without difficulty.? Has a good appetite, is tolerating a general diet, is passing flatus, and has not had a bowel movement.? Has small amount of rubra lochia.? She is ambulating well. She is and has not yet been able to latch the baby yet. ANDRAE is working with her. ? OB - PN: Obj Exam Physical Exam: Vital signs: Temp Pulse Resp BP Pulse Ox O2 Del Method 98.3 F 84 16 121/68 96 Room Air 02/08/24 08:50 02/08/24 08:50 02/08/24 08:50 02/08/24 08:50 02/08/24 08:50 02/08/24 08:50 Narrative: GENERAL APPEARANCE:? normal affect, alert, no distress MOOD:? appropriate CHEST:? clear to auscultation HEART:? regular rate and rhythm ABDOMEN:? soft, non-tender the uterine fundus is At Umbilicus, Midline and is appropriate for the stage of recovery. PERINEUM:? moderate edema of the perineum, there is a Perineal Laceration,? that is well approximated with no erythema EXTREMITIES:? normal and minimal edema OB - PN: Obj Data Labs Labs: Laboratory Results - last 24 hr 02/07/24 02/08/24 18:28 06:32 WBC 12.66 H RBC 3.79 L Hgb 11.8 L 9.7 L Hct 35.5 MCV 94 MCH 31 MCHC 33 RDW Coeff of Nabil 13.2 Plt Count 209 Neut % (Auto) 83.9 H Lymph % (Auto) 10.5 L [place] % (Auto) 4.3 Eos % (Auto) 0.6 Baso % (Auto) 0.2 Neut # (Auto) 10.60 H Lymph # (Auto) 1.30 [place] # (Auto) 0.50 Eos # (Auto) 0.10 Baso # (Auto) 0.00 Abs Immat Gran (auto) 0.10 Imm/Tot Granulo (auto) 0.5 Hep Bs Antigen Negative Hep Bs Antibody Positive A Hepatitis C Antibody Negative HIV-1 Qnt NAAT copies/mL Cancelled HIV-1 Qnt NAAT log copies/mL Cancelled HIV-1 Qnt NAAT Interp Cancelled HIV 1&2 Ab/P24 Ag 4thGn Negative Blood Type A Positive Antibody Screen NEGATIVE OB - PN: A/P Delivery Assessment and Plan (1) care and examination of lactating mother: Status: Acute (2) (normal spontaneous vaginal delivery): Status: Acute (3) Perineal laceration during delivery, condition: Status: Acute Plan Comments: PP day #1 Routine care Hgb drop to 9.7 this morning. Initiate iron every other day. Nursing to continue to assist with latch Anticipate discharge 02/09/2024
[2024-02-08] MEDS: DOCUSATE SODIUM 100 MG CAPSULE PO (15:01)
[2024-02-08 16:40] VITALS: BP 116/72; PULSE 80; RESP 16; TEMP 36.6; O2SAT 99
[2024-02-08] MEDS: FERROUS SULFATE 325 MG TABLET PO (22:38)
[2024-02-08 23:02] VITALS: BP 108/66; PULSE 78; RESP 16; TEMP 36.8; O2SAT 97
[2024-02-08] MEDS: LANOLIN CREAM 1 APPLIC TOPICAL (23:02)
[2024-02-09 04:20] VITALS: BP 114/75; PULSE 70; RESP 16; TEMP 36.7; O2SAT 97
[2024-02-09 07:30] VITALS: BP 129/85; PULSE 85; RESP 16; TEMP 37.1; O2SAT 97
--- NOTE | 2024-02-09 12:51 | P.DS_ITS ---
DS: Providers Provider Date Seen: 02/09/24 Date of admission: 02/07/24 17:12 Primary care physician: Shelly Lugo MD Admitting Clinician: Estrellita De Leon CNM Attending Physician on discharge: Genoveva Owens CNM Date of Discharge: 02/09/24 DS: Diagnosis Discharge Diagnosis (1) Perineal laceration during delivery, condition: Status: Acute (2) (normal spontaneous vaginal delivery): Status: Acute (3) care and examination of lactating mother: Status: Acute Exam Narrative: Exam Narrative: VSS, afebrile GENERAL APPEARANCE: ?normal affect, alert, no distress MOOD: ?appropriate HEENT: normocephalic, neck supple, full ROM CHEST: ?Symmetrical chest wall movement. ?Normal respiratory effort. ?Clear to auscultation HEART: ?regular rate and rhythm ABDOMEN: ?soft, non-tender. Uterine fundus is firm, at Umbilicus, Midline and is appropriate for the stage of recovery. ?Bowel sounds present. PERINEUM: ?mild edema of the perineum, there is a 2nd degree laceration that is healing well. EXTREMITIES: ?normal and trace edema Const: Vital Signs, click to edit/add: Vital Signs - 24 hr 02/08/24 23:02 02/09/24 04:20 02/09/24 07:30 Temperature 98.2 F 98.1 F 98.7 F Pulse Rate [Blood Pressure Cuff] 78 70 85 Respiratory Rate 16 16 16 Blood Pressure [Le ft Arm] 108/66 114/75 129/85 Pulse Oximetry 97 97 97 Oxygen Delivery Me thod Room Air Room Air Room Air Documenting provider has reviewed patient's vital signs: yes OB - DS: Summary Hospital Course Hospital Course: Julieta is a 28 y.o. who was admitted to [facility] & [facility] for labor. ?She had an uncomplicated NVD.?The patient feels well. ?The pain is well controlled with current medications. ?She has no new complaints. ?She is breast feeding and reports things are improving but she has been supplementing infant and working with .? the patient has done well.? Vitals have been stable.? She has remained afebrile.? Has a good appetite, is tolerating a general diet. ?She is voiding without difficulty.? She is passing gas and has not had a bowel movement.? She is ambulating and denies any dizziness.? Has Small amount of rubra lochia. ?She is planning the mini pill for prevention. Peripartum Data delivery method: Vaginal Laceration description: Perineal - 2nd Degree complications: none Gender: Female Discharge Plan: Home Status at Discharge Functional status at discharge: independent ambulation Overall status at discharge: patient is progressing back to baseline Time Spent with Patient Time attestation: Total time spent providing and/or coordinating discharge services: Time spent: Less than 30 minutes Discharge Plan Discharge Disposition: Home, Self-Care Date of Admission: 02/07/24 17:12 Attending Provider on Discharge: Genoveva Owens Primary Care Provider: Shelly Lugo Condition: Stable Anticipated Discharge Date/Time: 02/09/24 12:55 Discharge Medications: New acetaminophen 500 mg Tablet 1,000 mg PO Q6H PRNQty: 0 0RF docusate sodium 100 mg Capsule 100 mg PO DAILY Qty: 90 0RF ferrous sulfate 325 mg (65 mg iron) Tablet 325 mg PO Q48H Qty: 30 0RF ibuprofen 600 mg Tablet 600 mg PO Q6H PRNQty: 60 0RF Continued Classic 28 mg iron- 800 mcg tablet 1 tab PO DAILY calcium carbonate [Tums] 200 mg calcium (500 mg) tablet,chewable 200 mg PO BID Discharge Orders: Discharge Order (Routine); Ordered 02/09/24 Ordered By: Genoveva Owens Patient Education: OB Over the Counter Medication Information, OB Vaginal/Breast Feeding Additional Instructions: Discharge instructions were reviewed with the patient including signs and symptoms of infection and home going medications Nothing vaginally for 6 weeks: no tampons or intercourse Off Work or School for 8 weeks Symptoms to report to doctor: * Bleeding that saturates more than one pad per hour * Passing clots larger than the size of a golf ball * Pain not relieved by prescribed medication * Fever above 100.4 degrees Fahrenheit * A foul vaginal odor * Difficulty in emotions, mood, and functions * Thoughts of hurting yourself and/or * Painful, reddened area in your breast * Any drainage, redness, or tenderness in your IV/epidural site * Severe headache that doesn't improve after taking medications * Changes in vision, including temporary loss of vision, blurred vision, and/or light sensitivity * Upper abdominal pain (usually under ribs on the right side) * Decrease in urination or painful, frequent urinating * Chest pain * Shortness of breath * Tenderness or pain with redness and/swelling in the calf(s) of your leg 2-week visit: discuss infant feeding concerns, review control options and screen for anxiety/depression. 6-week visit for an annual exam. consultation services are available to all mothers and babies for the first year after delivery.? To make an appointment, please call [phone]. Activity Level: Activity as Tolerated Discharge Diet: Regular Follow Up Appointments: [facility] [Provider Group] Forms: [employer] Info Instructions
[2024-02-09 20:17] LABS: Hepatitis B Core Antibody, IgM Negative (Negative)
[2024-02-10 02:44] LABS: Rapid Plasma Reagin (RPR) Non Reactive (Non Reactive)
[2024-02-10 02:57] LABS: Rubella Antibody IgG 7.6 IU/mL
== END 2024-02-09 14:00 | disposition home or self-care (01) | DRG 807 ==
LOC: OB OUT 17:13 → OB 17:13
PROVIDERS: Obstetrics & Gynecology; Admitting Provider Advanced Practice Midwife; PCP Family Medicine; Visit Provider Advanced Practice Midwife
DX: O70.1 Second degree perineal laceration during delivery (principal); Z37.0 Single live birth; Z3A.40 40 weeks gestation of pregnancy; O77.0 Labor and delivery complicated by meconium in amniotic fluid; O70.0 First degree perineal laceration during delivery; O48.0 Post-term pregnancy
CPT/HCPCS: 36415; 85018; 85025; 86592; 86703; 86705; 86706; 86762; 86787; 86803; 86850; 86900; 86901; 87340; 87536; 88307; A9270; J2003

== ENCOUNTER 2025-02-09 07:19 | Outpatient (CLI) | payer OTHER, SELFPAY ==
--- NOTE | 2025-02-09 07:15 | CRLHL7_ITS ---
For Patients: As a result of the Century Cures Act, medical imaging exams and procedure reports are released immediately into your electronic medical record. You may view this report before your referring provider. If you have questions, please contact your health care provider. OBSTETRICAL ULTRASOUND TRANSVAGINAL CLINICAL INDICATION: Dating and viability. LMP: Unknown PREVIOUS ULTRASOUND: No TECHNIQUE: Real-time mclain-scale imaging of the fetus was performed transvaginal. Transvaginal imaging was performed for better visualization of the endometrium and ovaries. FINDINGS: CRL: 3.1 cm, 10 weeks 0 days; MADAI 09/07/2025 heart rate: 165 BPM Gestational sac: 3.5 cm, appears within normal limits Yolk sac: 2.8 mm, appears within normal limits Right ovary: 3.8 x 1.9 x 2.0 cm, CL Left ovary: 2.9 x 2.0 x 1.6 cm IMPRESSION: 1. Single living intrauterine measures 10 weeks 0 days with sonographic due date of 09/07/2025. 2. Corpus luteal cyst of right ovary. 3. Prominence of the nuchal translucency. Dedicated assessment recommended. GIUSEPPE GAY M.D. Diagnostic Radiologist [email or web address] Transcribed: 10:[address]/Dictated by: Giuseppe Gay MD @ 02/09/2025 9:19:00 AM (Electronically Signed)
== END 2025-02-09 07:20 | disposition home or self-care (01) ==
LOC: US 07:20
PROVIDERS: PCP Family Medicine; Visit Provider Advanced Practice Midwife
DX: O34.81 Maternal care for other abnormalities of pelvic organs, first trimester (principal); N83.11 Corpus luteum cyst of right ovary; Z3A.10 10 weeks gestation of pregnancy
CPT/HCPCS: 76817

== ENCOUNTER 2025-02-09 08:34 | Outpatient (CLI) | payer OTHER, SELFPAY ==
[2025-02-09 15:52] LABS: Chlamydia DNA Amplified* NOT DETECTED (No Detected); GC DNA Amplified* NOT DETECTED (No Detected)
== END 2025-02-09 08:35 | disposition home or self-care (01) ==
PROVIDERS: PCP Family Medicine; Visit Provider Advanced Practice Midwife
DX: Z34.81 Encounter for supervision of other normal pregnancy, first trimester (principal); Z67.10 Type A blood, Rh positive
CPT/HCPCS: 83020; 83021; 85660; 86703; 86704; 86706; 86762; 86780; 86787; 86803; 86850; 86900; 86901; 87086; 87340; 87491; 87591